=== PATIENT | male | born 1955 | race Caucasian/White ===

== ENCOUNTER 2018-05-04 14:10 | Observation (INO) | payer BC, OTHER ==
--- OUTSIDE RECORDS SUMMARY | 2018-05-04 14:11 | XMS REPORT | Clinical Summary ---
:1955 Author Organization [facility] Address [address] [place] [address] Care Team Providers Name Role Phone Rei Murrell MD Primary Care Provider Unavailable Allergies No Known Allergies Medications Medication Sig Dispensed Refills Start Date End Date Status lisinopril Take 10 mg by 0 Active (PRINIVIL,ZESTRIL) 10 mg mouth daily. tablet chlorthalidone (HYGROTEN) Take 25 mg by 0 Active 25 MG tablet mouth daily. 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 Last Filed Vital Signs Not on file Plan of Treatment Health Maintenance Due Date Last Done Comments COLON CANCER SCREENING 2004 SHINGLES VACCINES (#1) 2004 INFLUENZA VACCINE 09/22/2017 Procedures Procedure Name Priority Date/Time Associated Diagnosis Comments SURGICAL PATHOLOGY Routine 11/16/2017 9:30 AM Results for this REQUEST CDT procedure are in the results section. SURGICAL PATHOLOGY Routine 11/10/2017 9:45 AM Results for this REQUEST CDT procedure are in the results section. after 05/03/2017 Results Surgical pathology request (11/16/2017 9:30 AM CDT)Only the most recent of2 resultswithin the time period is included. [facility] DEPARTMENT OF PATHOLOGY AND GENOMIC MEDICINE Surgical pathology report See link below for PDF [facility] DEPARTMENT OF Lab Report PATHOLOGY AND GENOMIC MEDICINE Result status This is Final Report [facility] DEPARTMENT OF for [id number] PATHOLOGY AND GENOMIC MEDICINE Performing Organization Address City/State/Zipcode Phone Number [facility] DEPARTMENT OF PATHOLOGY AND [address] [place] [address] GENOMIC MEDICINE after 05/03/2017 Insurance Payer Benefit Plan / Group Subscriber ID Type Phone Address BCBS BCBS CHOICE PPO/FEDERAL EMPL PPO xxxxxxxxxxxx PPO [id number] xxxxxxxxxxx Advance Directives Patient has advance care planning documents on file. For more information, please contact:Thiago Mendoza65[place] [address]
--- OUTSIDE RECORDS SUMMARY | 2018-05-04 14:12 | XMS REPORT ---
:1955 Author Organization [facility] Address [address] [place] [address] [address] [place] [address] Care Team Providers Name Role Phone KAUSHIK PENNINGTON Primary Care Provider Unavailable KAUSHIK PENNINGTON Unavailable Unavailable Problems This patient has no known problems. Allergies, Adverse Reactions, Alerts This patient has no known allergies or adverse reactions. Medications This patient has no known medications. Encounters Start End Encounter Admission Attending Care Care Encounter Date/Time Date/Time Type Type Clinicians Facility Department ID 2017-06-14 2017-06-14 Outpatient Fredy PENNINGTON [facility] [id number] 19:47:00 19:47:00 KAUSHIK Results Test Description Test Time Test Comments Text Results Atomic Results Result Comments CBC with Differential 2017-06-14 21:39:00 Test Item Value Reference Range Comments WBC (test code=WBC) 4.8 K/cumm 4.4-10.5 RBC (test code=RBC) 4.97 M/cumm 4.10-5.70 Hemoglobin (test code=HGB) 15.5 gm/dL 13.4-17.4 Hematocrit (test code=HCT) 46.8 % 38.7-52.0 MCV (test code=MCV) 94.2 fL 80-100 MCH (test code=MCH) 31.2 pg 27.0-32.5 MCHC (test code=MCHC) 33.1 g/dL 32.0-37.5 RDW (test code=RDW) 12.8 % 11.5-14.5 Platelet Count (test code=PLTCT) 140 K/cumm 140-440 MPV (test code=MPV) 8.2 fL Diff Method (test code=DIFFM) Auto Neutrophil (test code=NEUT) 73.3 % 36-70 Lymphocyte (test code=LYMPH) 15.5 % 12-44 Monocyte (test code=MONO) 9.6 % 0-11 Eosinophil (test code=EOS) 1.3 % 0-7 Basophil (test code=BASO) 0.4 % 0-2 Neutro Abs (test code=ANEUT) 3.5 K/cumm 1.6-7.4 Lymph Abs (test code=ALYMPH) 0.7 K/cumm 0.5-4.6 [place] Abs (test code=AMONO) 0.5 K/cumm 0.0-1.2 Eos Abs (test code=AEOS) 0.06 K/cumm 0.00-0.74 Baso Abs (test code=ABASO) 0.0 K/cumm 0.00-0.21 Comprehensive Metabolic [id number] 21:14:00 Test Item Value Reference Range Comments Sodium (test code=NA) 143 mmol/L 135-145 Potassium (test code=K) 4.3 mmol/L 3.5-5.1 Chloride (test code=CL) 103 mmol/L 98-105 Carbon Dioxide (test 27 mmol/L 22-29 code=CO2) Glucose (test code=GLU) 91 mg/dL 70-115 Blood Urea Nitrogen 10 mg/dL 8-23 (test code=BUN) Creatinine (test 0.9 mg/dL 0.7-1.2 code=CREAT) Calcium (test code=CA) 8.7 mg/dL 8.3-10.5 Prot Total (test 6.6 g/dL 6.4-8.3 code=TP) Albumin (test code=ALB) 4.5 g/dL 3.5-5.2 A/G Ratio (test 2.1 Ratio code=AGRATIO) Globulin (test 2.1 2.9-3.1 code=GLOB) Bili Total (test 0.9 mg/dL 0.1-0.9 code=TBIL) Alk Phos (test 82 U/L 40-129 code=APHOS) AST (test code=AST) 25 U/L 1-40 ALT (test code=ALT) 23 U/L 1-41 BUN/Creatinine Ratio 11.1 (test code=BCRATIO) Anion Gap (test 13 mmol/L 7-16 code=AGAP) Estimated GFR (test >60 mL/min/1.73m2 eGFR (estimated Glomerular code=GFR) Filtration Rate) is an estimated value,calculated from the patient's serum creatinine using the MDRD equation.It is NOT the patient's actual GFR. The eGFR provides a more clinicallyuseful measure of kidney disease than serum creatinine alone.This calculation takes sex and race into account, if the informationis provided. If the race is not provided, and the patient isAfrican-Vietnamese, multiply by 1.212. If sex is not provided, and thepatient is female, multiply by 0.742. Results for patients <18 years ofage have not been validated by the MDRD study and should be interpretedwith caution.eGFR Result Interpretation:eGFR > or=60 is in the Normal RangeeGFR < 60 may mean kidney diseaseeGFR < 15 may mean kidney failureRanges recommended by the National Kidney Foundation,http://nkdep.nih .gov Lipid [id number] 21:14:00 Test Item Value Reference Range Comments Cholesterol (test 138 mg/dL 0-200 code=CHOL) Triglycerides (test 47 mg/dL 9-200 code=TRIG) HDL (test code=HDL) 61 mg/dL 40-60 Chol/HDL (test 2.3 Ratio 0.0-5.0 code=CHOLPHDL) LDL, Calculated (test 68 mg/dL 0-130 (NOTE)RISK OF HEART code=LDLC) DISEASEPublished by Vietnamese Heart AssociationAnalyte Optimal Boderline Increased RiskCHOL <200 200-239 >240TRIG <150 150-199 >200HDL Male: >60 <40HDL Female: >60 <50LDL <100 130-159 >160LDL NEAR OPTIMAL IS 100-129 VLDL (test code=VLDL) 9 mg/dL 5-40 LDL/HDL (test code=LDLPHDL) 1
[2018-05-04 14:39] LABS: Absolute Lymphocytes (CBC) 1.4 K/uL (0.7-4.9); Absolute Monocytes 0.6 K/uL (0.1-1.3); Absolute Neutrophil 5.1 K/uL (1.8-8.0); Basophils % 0.4 % (0-1.3); Eosinophils % 1.5 % (0-4.4); Lymphocytes % 19.4 % (15.3-44.8); MPV 8.8 fL (7.6-11.3); Monocytes % 7.7 % (3.3-12.3); RBC Red Blood Cell Count 5.32 M/uL (4.33-5.43)
[2018-05-04 15:01] LABS: ALT/SGPT 34 U/L (12-78); AST/SGOT 16 U/L (15-37); Albumin 4.1 g/dL (3.4-5.0); Alkaline Phosphatase 94 U/L (45-117); BUN Blood Urea Nitrogen 11 mg/dL (7-18); Bicarbonate 27 mmol/L (21-32); Bilirubin Direct 0.3 mg/dL (0-0.2); Glucose Level 88 mg/dL (74-106); Magnesium 1.9 mg/dL (1.8-2.4); NT PRO-BNP 87 pg/mL (<125); Potassium 3.9 mmol/L (3.5-5.1); Protein, Total 7.4 g/dL (6.4-8.2); Sodium Level 141 mmol/L (136-145); Troponin (Emerg Dept Use Only) < 0.02 ng/mL (0.0-0.045)
[2018-05-04 15:05] LABS: Protime INR 1.03
--- NOTE | 2018-05-04 15:25 | RAD REPORT ---
EXAM DESCRIPTION: RAD - Chest Single View - 05/04/2018 3:10 pm CLINICAL HISTORY: Intermittent chest pain COMPARISON: December 2011 TECHNIQUE: AP portable chest image was obtained 1505 hours . FINDINGS: Lung volumes are low compared to the prior study. Interstitial pattern is not significantl y different when adjusting for the shallow inspiration. No peripheral mass, consolidation or failure finding. Heart and vasculature are normal. No measurable pleural effusion and no pneumothorax. No acu te bony abnormality seen. No acute aortic findings suspected. IMPRESSION: No acute cardiopulmonary process. No significant change from comparison.
--- NOTE | 2018-05-04 16:07 | RAD REPORT ---
EXAM DESCRIPTION: CT - Chest For Pe Angio - 05/04/2018 3:59 pm CLINICAL HISTORY: Chest pain, shortness of breath COMPARISON: Portable chest May 04, CT chest June 2009 TECHNIQUE: Dynamically enhanced 3 mm thick images of the chest were obtained during administration o f approximately 150mL Isovue 370 IV contrast. Coronal and oblique MIP reconstruction images were gene rated and reviewed. Exam utilizes a protocol to evaluate the pulmonary arterial tree. All CT scans are performed using dose optimization technique as appropriate and may include automated exposure control or mA/KV adjustment according to patient size. FINDINGS: No pulmonary emboli are identified. The aorta as imaged shows no acute or suspicious finding. No pericardial thickening or effusion. No focal mass or consolidation. Interstitial markings are accentuated due to respiratory motion. Mini mal posterior gutter atelectasis noted on the right. A mild interstitial edema or infiltrate could be masked. No pleural effusion or pleural thickening. No mediastinal or hilar suspicious masses. No chest wall masses or abnormal axillary lymphadenopathy. IMPRESSION: No pulmonary emboli identified. No focal mass or consolidation. Minimal interstitial edema or infiltrate in the right lung field is n ot excluded.
[2018-05-04] MEDS ORDERED: ACETAMINOPHEN 500 MG TAB PO PRN (19:50)
[2018-05-04] MEDS ORDERED: ALPRAZOLAM 0.25 MG TABLET PO PRN (19:50)
[2018-05-04] MEDS ORDERED: MORPHINE 4 MG/ML SYR IV PRN (19:50)
--- NOTE | 2018-05-04 19:58 | ER ---
Nurse's Notes [facility] Name: Nicolas Rojas Age: 62 yrs Sex: Male : 1955 Arrival Date: 05/04/2018 Time: 14:15 Bed 6 Private MD: Diagnosis: Chest pain, unspecified Presentation: 05/04 14:16 Presenting complaint: Patient states: He went to the CT today to try to get a referral aj1 because he has been having intermittent chest pain since February. Reports that the pain was on the left side of his chest, but has currently resolved. Patient was given aspirin at the CT prior to EMS arrival. Transition of care: patient was not received from another setting of care. Onset of symptoms was February 2018. Risk Assessment: Do you want to hurt yourself or someone else? Patient reports no desire to harm self or others. Initial Sepsis Screen: Does the patient meet any 2 criteria? No. Patient's initial sepsis screen is negative. Does the patient have a suspected source of infection? No. Patient's initial sepsis screen is negative. Care prior to arrival: None. 14:16 Method Of Arrival: EMS: [facility] aj1 14:16 Acuity: BEBE 3 aj1 Triage Assessment: 14:23 General: Appears in no apparent distress. comfortable, Behavior is calm, cooperative, aj1 appropriate for age. Pain: Denies pain. Cardiovascular: Patient's skin is warm and dry. Historical: - Allergies: 14:23 No Known Allergies; aj1 - Home Meds: 14:23 albuterol sulfate 90 mcg/actuation Inhl HFAA 2 puffs as needed [Active]; aj1 budesonide-formoterol inhalation inhalation 2 puffs 2 times per day [Active]; aspirin 81 mg Oral chew 1 tab once daily [Active]; atorvastatin 80 mg oral tab 1 tab once daily [Active]; esomeprazole magnesium 40 mg oral cpDR 1 cap once daily [Active]; fluticasone 50 mcg/actuation nasal spsn 1 spray 2 times per day [Active]; Wittman 5-325 mg Oral tab 1 tab every 6 hours as needed [Active]; isosorbide mononitrate 30 mg Oral Tb24 1 tab once daily [Active]; nitroglycerin 0.4 mg SL subl 1 tab every 5 minutes [Active]; metoprolol tartrate 12.5 mg Oral once daily [Active]; - PMHx: 14:23 CAD; COPD; Hyperlipidemia; Hypertension; carcinoma; Hypothyroidism; familial aj1 hypoalphalipoproteinemia; - PSHx: 14:23 Hernia repair; surgery for ureter obstruction; aj1 - Immunization history:: Flu vaccine is not up to date. - Social history:: Smoking status: Patient/guardian denies using tobacco. - Ebola Screening: : Patient denies travel to an Ebola-affected area in the 21 days before illness onset. Screenin:25 Abuse screen: Denies threats or abuse. Denies injuries from another. Nutritional aj1 screening: No deficits noted. Tuberculosis screening: No symptoms or risk factors identified. 20:40 Fall Risk None identified. lp1 Assessment: 14:25 General: Appears in no apparent distress. comfortable, Behavior is calm, cooperative, aj1 appropriate for age. Pain: Complains of pain in anterior aspect of left upper chest Pain does not radiate. Pain currently is 0 out of 10 on a pain scale. at worst was 3 out of 10 on a pain scale. Quality of pain is described as aching, Pain began 3 months ago Is intermittent. Neuro: Level of Consciousness is awake, alert, obeys commands, Oriented to person, place, time, situation. Cardiovascular: Heart tones S1 S2 present Patient's skin is warm and dry. Rhythm is sinus rhythm with unifocal PVCs. Respiratory: Airway is patent Respiratory effort is even, unlabored, Respiratory pattern is regular, symmetrical. GI: No signs and/or symptoms were reported involving the gastrointestinal system. : No signs and/or symptoms were reported regarding the genitourinary system. EENT: No signs and/or symptoms were reported regarding the EENT system. Derm: No signs and/or symptoms reported regarding the dermatologic system. Skin is pink, warm \T\ dry. normal. Musculoskeletal: No signs and/or symptoms reported regarding the musculoskeletal system. Circulation, motion, and sensation intact. 15:26 Reassessment: Patient appears in no apparent distress at this time. No changes from aj1 previously documented assessment. Patient and/or family updated on plan of care and expected duration. Pain level reassessed. Patient is alert, oriented x 3, equal unlabored respirations, skin warm/dry/pink. 16:27 Reassessment: Patient appears in no apparent distress at this time. No changes from aj1 previously documented assessment. Patient and/or family updated on plan of care and expected duration. Pain level reassessed. Patient is alert, oriented x 3, equal unlabored respirations, skin warm/dry/pink. 17:41 Reassessment: Patient appears in no apparent distress at this time. No changes from aj1 previously documented assessment. Patient and/or family updated on plan of care and expected duration. Pain level reassessed. Patient is alert, oriented x 3, equal unlabored respirations, skin warm/dry/pink. 18:11 Reassessment: Patient appears in no apparent distress at this time. No changes from aj1 previously documented assessment. Patient and/or family updated on plan of care and expected duration. Pain level reassessed. Patient is alert, oriented x 3, equal unlabored respirations, skin warm/dry/pink. 18:30 Reassessment: Repeat EKG done and shown to PA. Repeat troponin obtained and sent to lab.aj1 19:45 Reassessment: Patient appears in no apparent distress at this time. Patient is alert, lp1 oriented x 3, equal unlabored respirations, skin warm/dry/pink. Patient states some chest pressure at this time; Aware of pending admission. 20:20 Reassessment:. Reassessment: Dr. Hanley at bedside to discuss care with patient. lp1 21:08 Reassessment: Patient appears in no apparent distress at this time. Patient is alert, lp1 oriented x 3, equal unlabored respirations, skin warm/dry/pink. Patient aware of pending admission. Vital Signs: 14:23 BP 170 / 96; Pulse 83; Resp 13; Temp 97.6; Pulse Ox 97% on R/A; Weight 108.86 kg (R); aj1 Height 6 ft. 2 in. (187.96 cm) (R); Pain 0/10; 15:27 BP 148 / 118; Pulse 79; Resp 22; Pulse Ox 97% on R/A; aj1 16:14 BP 172 / 85; Pulse 75; Resp 12; Pulse Ox 98% ; sv 17:42 BP 166 / 102; Pulse 79; Resp 20; Pulse Ox 97% on R/A; aj1 18:12 BP 163 / 88; Pulse 82; Resp 15; Pulse Ox 100% on R/A; aj1 19:00 BP 170 / 109; Pulse 71; Resp 20; Pulse Ox 98% on R/A; lp1 20:00 BP 177 / 114; Pulse 74; Resp 17; Pulse Ox 98% on R/A; lp1 20:20 BP 157 / 91; Pulse 77; Resp 18; Pulse Ox 96% on R/A; lp1 20:40 BP 159 / 84; Pulse 79; Resp 20; Pulse Ox 97% on R/A; lp1 21:51 BP 130 / 76; Pulse 78; Resp 20; Pulse Ox 97% on R/A; lp1 14:23 Body Mass Index 30.81 (108.86 kg, 187.96 cm) aj1 ED Course: 14:15 Patient arrived in ED. [facility] 14:18 Iván Berman PA is PHCP. [facility] 14:18 Adonay Davis MD is Attending Physician. [facility] 14:18 Triage completed. [facility] 14:21 Initial lab(s) drawn, by me. Inserted saline lock: 22 gauge in right antecubital area, jb1 using aseptic technique. Blood collected. 14:23 Arm band placed on. aj1 14:25 No provider procedures requiring assistance completed. Patient maintains SpO2 aj saturation greater than 95% on room air. 14:25 Patient has correct armband on for positive identification. Bed in low position. Call 1 light in reach. Side rails up X 1. wrestling coach on. Pulse ox on. NIBP on. 14:35 EKG done, by control valve technician. reviewed by Iván PINEDO. 3 14:37 Bekah Baker, RN is Primary Nurse. aj1 15:09 XRAY Chest (1 view) In Process Unspecified. EDMS 15:[address] via stretcher. nj 15:59 CT completed. Patient tolerated procedure well. Patient moved back from CT. nj 15:59 CT Chest For PE Angio In Process Unspecified. EDMS 19:57 Carmine Hanley MD is Hospitalizing Provider. jm 20:44 Patient admitted, IV remains in place. lp1 Administered Medications: 20:17 Drug: Aspirin Chewable Tablet 324 mg Route: PO; lp1 21:08 Follow up: Response: No adverse reaction lp1 Outcome: 19:57 Decision to Hospitalize by Provider. jm 21:04 Condition: stable lp1 21:04 Instructed on the need for admit. 21:38 Admitted to Tele accompanied by tech, via wheelchair, room 416, with chart, Report lp1 called to SARAH Erwin 22:01 Patient left the ED. lp1 Signatures: Dispatcher [employer] EDVirgil Bran jb1 Bekah Baker, RN RN aj1 Jeanie Richards RN RN Iván Soto PA PA jmm Pena, Laura, RN RN lp1 Heladio Jacinto Shakira 3 Corrections: (The following items were deleted from the chart) 20:41 19:15 BP 111 / 65; Pulse 74bpm; Resp 19bpm; Pulse Ox 98% RA; Pain 0/10; lp1 lp1 20:41 20:15 BP 105 / 60; Pulse 73bpm; Resp 19bpm; Pulse Ox 99% RA; Pain 0/10; lp1 lp1 20:44 20:40 IV discontinued, No redness/swelling at site. Pressure dressing applied, lp1 lp1 21:08 20:27 Reassessment: Dr. Hanley at bedside to discuss care with patient; Verbal order lp1 given to administer Lopressor 5mg IV now for elevated BP lp1
--- NOTE | 2018-05-04 19:58 | EDPHYS ---
Physician Documentation [facility] Name: Nicolas Rojas Age: 62 yrs Sex: Male : 1955 Arrival Date: 05/04/2018 Time: 14:15 Bed 6 Private MD: ED Physician Adonay Davis HPI: 05/04 14:25 This 62 yrs old Male presents to ER via EMS with complaints of Chest Pain. [facility] 14:25 The patient or guardian reports chest pain that is located primarily in the substernal [facility] area. Onset: gradually, at 11:00. The pain does not radiate. The chest pain is described as aching. This is a 62 year old male with a history of CAD, COPD, HLP, HTN that presents to the ED with complaints of intermittent chest pain since February with increased pain beginning this morning at approx 11 am. Patient denies radiation of pain. Denies abdominal pain, denies vomiting. . Historical: - Allergies: 14:23 No Known Allergies; aj1 - Home Meds: 14:23 albuterol sulfate 90 mcg/actuation Inhl HFAA 2 puffs as needed [Active]; aj1 budesonide-formoterol inhalation inhalation 2 puffs 2 times per day [Active]; aspirin 81 mg Oral chew 1 tab once daily [Active]; atorvastatin 80 mg oral tab 1 tab once daily [Active]; esomeprazole magnesium 40 mg oral cpDR 1 cap once daily [Active]; fluticasone 50 mcg/actuation nasal spsn 1 spray 2 times per day [Active]; [place] 5-325 mg Oral tab 1 tab every 6 hours as needed [Active]; isosorbide mononitrate 30 mg Oral Tb24 1 tab once daily [Active]; nitroglycerin 0.4 mg SL subl 1 tab every 5 minutes [Active]; metoprolol tartrate 12.5 mg Oral once daily [Active]; - PMHx: 14:23 CAD; COPD; Hyperlipidemia; Hypertension; carcinoma; Hypothyroidism; familial aj1 hypoalphalipoproteinemia; - PSHx: 14:23 Hernia repair; surgery for ureter obstruction; aj1 - Immunization history:: Flu vaccine is not up to date. - Social history:: Smoking status: Patient/guardian denies using tobacco. - Ebola Screening: : Patient denies travel to an Ebola-affected area in the 21 days before illness onset. ROS: 14:25 Constitutional: Negative for fever, chills, and weight loss. [facility] 14:25 Respiratory: Negative for shortness of breath, cough, wheezing, and pleuritic chest pain, Abdomen/GI: Negative for abdominal pain, nausea, vomiting, diarrhea, and constipation. 14:25 Cardiovascular: Positive for chest pain. 14:25 All other systems are negative. Exam: 14:25 Head/Face: atraumatic. Eyes: EOMI, no conjunctival erythema appreciated ENT: Moist [facility] Mucus Membranes Neck: Trachea midline, Supple Chest/axilla: Normal chest wall appearance and motion. Cardiovascular: Regular rate and rhythm. No edema appreciated Respiratory: Normal respirations, no respiratory distress appreciated Abdomen/GI: Non distended, soft Back: Normal ROM Skin: General appearance color normal MS/ Extremity: Moves all extremities, no obvious deformities appreciated, no edema noted to the lower extremities Neuro: Awake and alert, normal gait Psych: Behavior is normal, Mood is normal, Patient is cooperative and pleasant 14:25 Constitutional: The patient appears in no acute distress, alert, awake. 14:31 Cardiovascular: Rate: normal, Rhythm: Pulses: no pulse deficits are appreciated. [facility] Vital Signs: 14:23 BP 170 / 96; Pulse 83; Resp 13; Temp 97.6; Pulse Ox 97% on R/A; Weight 108.86 kg (R); aj1 Height 6 ft. 2 in. (187.96 cm) (R); Pain 0/10; 15:27 BP 148 / 118; Pulse 79; Resp 22; Pulse Ox 97% on R/A; aj1 16:14 BP 172 / 85; Pulse 75; Resp 12; Pulse Ox 98% ; sv 17:42 BP 166 / 102; Pulse 79; Resp 20; Pulse Ox 97% on R/A; aj1 18:12 BP 163 / 88; Pulse 82; Resp 15; Pulse Ox 100% on R/A; aj1 19:00 BP 170 / 109; Pulse 71; Resp 20; Pulse Ox 98% on R/A; lp1 20:00 BP 177 / 114; Pulse 74; Resp 17; Pulse Ox 98% on R/A; lp1 20:20 BP 157 / 91; Pulse 77; Resp 18; Pulse Ox 96% on R/A; lp1 20:40 BP 159 / 84; Pulse 79; Resp 20; Pulse Ox 97% on R/A; lp1 21:51 BP 130 / 76; Pulse 78; Resp 20; Pulse Ox 97% on R/A; lp1 14:23 Body Mass Index 30.81 (108.86 kg, 187.96 cm) aj1 MDM: 14:25 Patient medically screened. [facility] 19:56 The patient was given aspirin in the Emergency Department. Data reviewed: vital signs, [facility] nurses notes, lab test result(s), EKG, radiologic studies, plain films. ED course: I discussed the patient with Dr. Hanley whom accepted admission. . 05/04 14:26 Order name: Basic Metabolic Panel; Complete Time: 15:02 [facility] 05/04 14:26 Order name: CBC with Diff; Complete Time: 14:54 [facility] 05/04 14:26 Order name: LFT's; Complete Time: 15:02 [facility] 05/04 14:26 Order name: Magnesium; Complete Time: 15:02 [facility] 05/04 14:26 Order name: NT PRO-BNP; Complete Time: 15:02 [facility] 05/04 14:26 Order name: PT-INR; Complete Time: 15:09 [facility] 05/04 14:26 Order name: Troponin (emerg Dept Use Only); Complete Time: 15:02 [facility] 05/04 14:26 Order name: XRAY Chest (1 view); Complete Time: 15:27 [facility] 05/04 15:18 Order name: Troponin (emerg Dept Use Only): 4 hour repeat. Draw at 1830; Complete Time: [facility] 18:57 05/04 19:54 Order name: Lipid Profile [facility] 05/04 19:54 Order name: Lipid Profile [facility] 05/04 19:54 Order name: Troponin I [facility] 05/04 19:54 Order name: Troponin I [facility] 05/04 19:54 Order name: Troponin I [facility] 05/04 14:26 Order name: EKG; Complete Time: 14:27 [facility] 05/04 14:26 Order name: Cardiac monitoring; Complete Time: 14:27 [facility] 05/04 14:26 Order name: EKG - Nurse/Tech; Complete Time: 14:27 [facility] 05/04 14:26 Order name: IV Saline Lock; Complete Time: 14:27 [facility] 05/04 14:26 Order name: Labs collected and sent; Complete Time: 14:27 [facility] 05/04 14:26 Order name: O2 Per Protocol; Complete Time: 14:27 [facility] 05/04 14:26 Order name: O2 Sat Monitoring; Complete Time: 14:27 [facility] 05/04 15:18 Order name: EKG - Nurse/Tech: run at 1830; Complete Time: 18:42 [facility] 05/04 15:41 Order name: CT Chest For PE Angio; Complete Time: 16:17 [facility] 05/04 19:54 Order name: CONS Physician Consult [facility] 05/04 19:54 Order name: Heart Healthy [facility] 05/04 19:54 Order name: Echo with Doppler [facility] 05/04 19:54 Order name: EKG Electrocardiogram [facility] 05/04 19:54 Order name: EKG Electrocardiogram [facility] Administered Medications: 20:17 Drug: Aspirin Chewable Tablet 324 mg Route: PO; lp1 21:08 Follow up: Response: No adverse reaction lp1 Disposition: 05/05 08:01 Co-signature as Attending Physician, Adonay Davis MD I agree with the assessment and dannie plan of care. Disposition: 05/04/18 19:57 Hospitalization ordered by Carmine Hanley for Observation. Preliminary diagnosis is Chest pain, unspecified. - Bed requested for Telemetry/MedSurg (observation). - Status is Observation. lp1 - Condition is Stable. - Problem is new. - Symptoms have improved. UTI on Admission? No Signatures: Dispatcher [employer] [facility] Bekah Baker RN RN aj1 Adonay Davis MD MD cha Mickail, Joel, PA PA [facility] Ira Anton RN RN lp1 Mica De La Garza RN RN cg Corrections: (The following items were deleted from the chart) 05/04 20:08 19:57 Hospitalization Ordered by Carmine Hanley MD for Observation. Preliminary cg diagnosis is Chest pain, unspecified. Bed requested for Telemetry/MedSurg (observation). Status is Observation. Condition is Stable. Problem is new. Symptoms have improved. UTI on Admission? No. [facility] 22:01 20:08 05/04/2018 19:57 Hospitalization Ordered by Carmine Hanley MD for Observation. lp1 Preliminary diagnosis is Chest pain, unspecified. Bed requested for Telemetry/MedSurg (observation). Status is Observation. Condition is Stable. Problem is new. Symptoms have improved. UTI on Admission? No. cg
[2018-05-04] MEDS ORDERED: ASPIRIN 81 MG CHEWABLE TABLET ONE (20:23)
[2018-05-04] MEDS ORDERED: METOPROLOL TAR 50 MG TAB PO SCH (21:00)
[2018-05-04] MEDS ORDERED: METOPROLOL TARTRATE 5 MG/5 ML INJ IV SCH (22:31)
[2018-05-05] MEDS: FUROSEMIDE 40 MG/4 ML VIAL IV SCH ×2 (00:14→09:51)
[2018-05-05 00:46] LABS: Urine Appearance CLEAR; Urine Bilirubin NEGATIVE (NEG); Urine Blood NEGATIVE (NEG); Urine Color YELLOW; Urine Glucose NEGATIVE (NEG); Urine Microscopic Reflex NO UMIC; Urine Protein NEGATIVE (NEG); Urine Specific Gravity 1.025 (1.005-1.030); Urine pH 7.5 (5.0-7.0)
[2018-05-05 02:01] VITALS: BMI 32.1
[2018-05-05] MEDS ORDERED: REGADENOSON 0.4 MG/5 ML SYR IV ONE (08:23)
[2018-05-05] MEDS ORDERED: ENOXAPARIN 40 MG/0.4 ML SQ SCH (09:00)
[2018-05-05] MEDS ORDERED: ASPIRIN EC 81 MG TAB PO SCH (09:00)
[2018-05-05] MEDS: METOPROLOL TAR 50 MG TAB PO SCH ×2 (09:50)
--- NOTE | 2018-05-05 10:31 | CON ---
History Of Present Illness: Mr. Rojas has been getting chest pain mostly in the morning, makes him t o lay on his side, press on it to help it go away. He is a patient at the [facility] When they he norma this, they sent him to our hospital. Since being here overnight, he has had normal vital signs. His EKG report is not available. He has had a CT angio of the chest, and chest x-ray that are michaela l, and cardiac enzymes that are normal. He has never had myocardial infarction or stroke. Does not use tobacco. Does not have diabetes. Medications: Outpatient medications have been naproxen, isosorbide mononitrate, hydrocodone, aspirin , budesonide, albuterol, metoprolol, atorvastatin, Protonix, and nitroglycerin. Physical Examination: General: He is 6 feet 1 inch, 243 pounds. HEENT: Normal. Lungs: Clear. Cardiac: Normal. Extremities: Normal. Impression: I will recommend the patient get a pharmacologic nuclear stress test. If that is normal , he could be discharged. I suspect he has a musculoskeletal or gastrointestinal problem causing the pain he has. Thank you very much for your kind referral of Mr. Rojas. I will follow him with you. ASHWIN Voice ID: [id number] Report ID: [id number]
--- NOTE | 2018-05-05 10:34 | EKG ---
Test Date: 2018-05-04 Test Time: 14:29:42 Automatic Lump Making Machine Tender: DELISA MEASUREMENT RESULTS: Intervals: Rate: 78 MI: 208 QRSD: 112 QT: 426 QTc: 485 [place]: P: 61 MI: 208 QRS: -22 T: 41 INTERPRETIVE STATEMENTS: Sinus rhythm with frequent premature ventricular complexes Left atrial enlargement Prolonged QT Abnormal ECG Compared to ECG 08/24/2004 21:19:00 Ventricular premature complex(es) now present Prolonged QT interval now present Left-axis deviation no longer present Electronically Signed On 05-04-18 17:47:27 CDT by Juan England
--- NOTE | 2018-05-05 10:38 | EKG ---
Test Date: 2018-05-04 Test Time: 18:23:14 Net Mobile Developer: TODD MEASUREMENT RESULTS: Intervals: Rate: 78 HI: 190 QRSD: 108 QT: 430 QTc: 490 [place]: P: 10 HI: 190 QRS: -13 T: -8 INTERPRETIVE STATEMENTS: Sinus rhythm with frequent premature ventricular complexes Prolonged QT Abnormal ECG Compared to ECG 05/04/2018 14:29:42 Atrial abnormality no longer present Electronically Signed On 05-05-18 08:14:13 CDT by Juan England
--- NOTE | 2018-05-05 10:46 | P.HP ---
Certification for Inpatient Patient admitted to: Observation With expected LOS: <2 Midnights Patient will require the following post-hospital care: None Practitioner: I am a practitioner with admitting privileges, knowledge of patient current condition, hospital course, and medical plan of care. Services: Services provided to patient in accordance with Admission requirements found in Title 42 Section 412.3 of the Code of Federal Regulations Patient History Date of Service: 05/04/18 Reason for admission: Chest pain rule out acute coronary syndrome History of Present Illness: Patient is a 62-year-old gentleman who came to the hospital with chest discomfort. Pain was mainly in the sternal region. Patient recently had a cardiac catheterization which did not reveal any significant coronary artery disease. Patient had no intervention performed. Patient was treated medically. Patient has been doing well but then over the last few weeks he has noticed that he is more short of breath and having discomfort of his chest as well. 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 He feels this may be contributing to the chest pain. The shortness of breath is exacerbated by laying flat. He has orthopnea and PND. His blood pressure is significantly elevated. Normally it runs about 140/80 but it is running 190s over 110 at this time. He will be admitted to the hospital for further workup. Allergies No Known Allergies Allergy (Verified 05/05/18 02:02) Home Medications: Albuterol Sulfate [Proair Respiclick] 2 puff IH Q6HP PRN 05/05/18 Aspirin Chewable [Aspirin Chewable*] 81 mg PO DAILY 05/05/18 Atorvastatin Calcium [Lipitor] 80 mg PO DAILY 05/05/18 Budesonide/Formoterol Fumarate [Symbicort 80-4.5 Mcg Inhaler] 2 puff IH BID Hydrocodone 5/APAP 325 [[employer] 5/325] 1 tab PO Q6H PRN 05/05/18 Isosorbide Mononitrate [Isosorbide Mononitrate ER] 30 mg PO DAILY 05/05/18 Metoprolol Tartrate [Lopressor] 25 mg PO BID 05/05/18 Naproxen 375 mg PO Q6HP PRN 05/05/18 Nitroglycerin 0.4 mg SL Q5M 05/05/18 Pantoprazole [Protonix Tab] 40 mg PO DAILY 05/05/18 - Past Medical/Surgical History Has patient received pneumonia vaccine in the past: No Diabetic: No -: CAD -: COPD -: HYPERLIPIDEMIA -: GERD -: BENIGN ESSENTIAL HYPERTENSION -: CHRONIC KRIS PAIN -: 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 -: PERIPHERAL NERVE DISEASE -: HYPOTHYROIDISM -: FAMILIAL HYPOALPHALIPOPROTEINEMIA -: Cardiac catheterization -: Skin excisional biopsy - Family History Father Medical History: Cancer Mother Medical History: Cancer - Social History Smoking Status: Former smoker Alcohol use: Yes CD- Drugs: No Caffeine use: Yes Place of Residence: Home Review of Systems 10-point ROS is otherwise unremarkable Physical Examination - Vital Signs Temperature: 97.7 F Blood Pressure: 140/90 Pulse: 61 Respirations: 20 Pulse Ox (%): 95 - Physical Exam General: Alert, In no apparent distress, Oriented x3 HEENT: Atraumatic, PERRLA, Mucous membr. moist/pink, EOMI, Sclerae nonicteric Neck: Supple, 2+ carotid pulse no bruit, No LAD, Without JVD or thyroid abnormality Respiratory: Clear to auscultation bilaterally, Normal air movement Cardiovascular: Regular rate/rhythm, Normal S1 S2, No murmurs Gastrointestinal: Normal bowel sounds, Soft and benign, Non-distended, No tenderness, No rebound, No guarding Musculoskeletal: No clubbing, No swelling, No tenderness Integumentary: No rashes Neurological: Normal gait, Normal speech, Normal strength at 5/5 x4 extr, Normal tone, Sensation intact, Cranial nerves 3-12 intact, Normal affect Lymphatics: No axilla or inguinal lymphadenopathy - Studies Laboratory Data (last 24 hrs) 05/04/18 14:20: PT 12.1, INR 1.03 05/04/18 14:20: WBC 7.2, Hgb 16.2, Hct 48.0, Plt Count 183 05/04/18 14:20: Sodium 141, Potassium 3.9, BUN 11, Creatinine 0.91, Glucose 88, Magnesium 1.9, Total Bilirubin 1.0, AST 16, ALT 34, Alkaline Phosphatase 94 Assessment & Plan - Problems (Diagnosis) (1) Acute exacerbation of CHF (congestive heart failure) Current Visit: Yes Status: Acute (2) Chest pain, rule out acute myocardial infarction Current Visit: Yes Status: Acute (3) History of hypertension Current Visit: Yes Status: Acute - Plan 1. Serial troponins and EKG 2. Cardiology consultation 3. Echocardiogram to evaluate ejection fraction and left ventricular relaxation. 4. Anti-platelet therapy, anti coagulation, beta-srikanth, statin, and O2 as needed 5. IV morphine for pain 6. Nitro p.r.n. 7. GI and DVT prophylax - Advance Directives Does patient have a Living Will: No Does patient have a Durable POA for Healthcare: Yes - Code Status/Comfort Care Code Status Assessed: Yes Code Status: Full Code Critical Care: No Time Spent Managing PTS Care (In Minutes): 45
--- NOTE | 2018-05-05 11:12 | TREADPHA ---
DX: CHEST PAIN Date of Study: 05/05/2018 Ht: 6 1 Wt: 243 lb 9.6 oz Consulting Physician: JODEE MEDICATIONS: TYLENOL, ASPIRIN, XANAX, LASIX, LOVENOX HISTORY: 62 YEAR OLD MALE WITH COMPLAINTS OF CHEST PAIN. HISTORY OF CORONARY ARTERY DISEASE, HYPERLIPIDEMIA, HYPERTENSION, CARCINOMA, HYPOTHYROIDISM, HERNIA REPAIR, NON SMOKER, NON DRINKER. PHYSICIAL EXAMINATION: RESTING B.P.: 120/78 RESTING H.R.: 59 RESTING EKG: SINUS BRADYCARDIA WITH PREMATURE VENTRICULAR COMPLEXES. NON SPECIFIC T ABNORMALITY. PROTOCOL: LEXISCAN EXERCISE TIME: 3:30 B.P. AT PEAK STRESS: 123/83 IMPRESSION: LEXISCAN INJECTED, FOLLOWED BY CARDIOLITE PER PROTOCOL. SEE NUCLEAR MEDICINE REPORT. NO SUPRAVENTRICULAR TACHYCARDIA. NO VENTRICULAR TACHYCARDIA. OCCASIONAL PREMATURE ATRIAL COMPLEXES PRIOR, DURING AND IN RECOVERY. NO PREMATURE VENTRICULAR COMPLEXES. PATIENT REPORTED 3/10 CHEST PAIN PRIOR AND DURING PROCEDURE. PATIENT REPORTED CHEST PAIN 1/10 DURING RECOVERY. NON DIAGNOSTIC EKG WITH LEXISCAN STRESS.
--- NOTE | 2018-05-05 12:03 | RAD REPORT ---
EXAM DESCRIPTION: NM - Rest Stress Cardiac Imaging - 05/05/2018 11:50 am CLINICAL HISTORY: Chest pain. COMPARISON: None. TECHNIQUE: The patient was administered approximately 10mCi of Tc 99m Sestamibi prior to resting SPE CT imaging of the heart. The patient was then administered approximately 30 mCi of Tc 99m Sestamibi f ollowing exercise or pharmacologic stress. Multiplanar SPECT images were reviewed. FINDINGS: There is uniformity of radiotracer uptake involving the entire left ventricular myocardiu m The left ventricular ejection fraction equals 52% IMPRESSION: Negative for myocardial perfusion defect
[2018-05-05 12:20] VITALS: O2SAT 94
--- NOTE | 2018-05-05 12:21 | ECHO ---
HEIGHT: 6 ft 1 in WEIGHT: 243 lb 9.6 oz DATE OF STUDY: 05/05/[address]: Carmine Hanley MD 2-DIMENSIONAL: YES M.MODE: YES DOPPLER: YES COLOR FLOW: YES TDS: NO PORTABLE: NO DEFINITY: NO BUBBLE STUDY: NO DIAGNOSIS: CHEST PAIN/ RULT OUT ACUTE CORONARY SYNDROME CARDIAC HISTORY: CATHERIZATION: YES SURGERY: NO PROSTHETIC VALVE: NO PACEMAKER: NO MEASUREMENTS (cm) DIASTOLIC (NORMALS) SYSTOLIC (NORMALS) IVSd 1.1 (0.6-1.2) LA Diam (1.9-4.0) LVEF 60-69% LVIDd 4.5 (3.5-5.7) LVIDs 2.9 (2.0-3.5) %FS % LVPWd 1.2 (0.6-1.2) Ao Diam 4.0 (2.0-3.7) 2 DIMENSIONAL ASSESSMENT: RIGHT ATRIUM: NORMAL LEFT ATRIUM: NORMAL RIGHT VENTRICLE: NORMAL LEFT VENTRICLE: NORMAL TRICUSPID VALVE: NORMAL MITRAL VALVE: NORMAL PULMONIC VALVE: NORMAL AORTIC VALVE: NORMAL PERICARDIAL EFFUSION: NONE AORTIC ROOT: NORMAL LEFT VENTRICULAR WALL MOTION: NORMAL. DOPPLER/COLOR FLOW: NORMAL. COMMENTS: NORMAL 2D ECHO WITH DOPPLER. TECHNOLOGIST: RADHA GREENWOOD
[2018-05-05 13:46] VITALS: BP 118/81; TEMP 98.3
--- NOTE | 2018-05-05 15:55 | P.SSS ---
Patient History Date of Service: 05/05/18 Reason for admission: Chest pain rule out acute coronary syndrome History of Present Illness: Patient is a 62-year-old gentleman who came to the hospital with chest discomfort. Pain was mainly in the sternal region. Patient recently had a cardiac catheterization which did not reveal any significant coronary artery disease. Patient had no intervention performed. Patient was treated medically. Patient has been doing well but then over the last few weeks he has noticed that he is more short of breath and having discomfort of his chest as well. 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 He feels this may be contributing to the chest pain. The shortness of breath is exacerbated by laying flat. He has orthopnea and PND. His blood pressure is significantly elevated. Normally it runs about 140/80 but it is running 190s over 110 at this time. He will be admitted to the hospital for further workup. Allergies No Known Allergies Allergy (Verified 05/05/18 02:02) Home Medications: Albuterol Sulfate [Proair Respiclick] 2 puff IH Q6HP PRN 05/05/18 Aspirin Chewable [Aspirin Chewable*] 81 mg PO DAILY 05/05/18 Atorvastatin Calcium [Lipitor] 80 mg PO DAILY 05/05/18 Budesonide/Formoterol Fumarate [Symbicort 80-4.5 Mcg Inhaler] 2 puff IH BID Hydrocodone 5/APAP 325 [[place] 5/325] 1 tab PO Q6H PRN 05/05/18 Isosorbide Mononitrate [Isosorbide Mononitrate ER] 30 mg PO DAILY 05/05/18 Metoprolol Tartrate [Lopressor] 25 mg PO BID 05/05/18 Naproxen 375 mg PO Q6HP PRN 05/05/18 Nitroglycerin 0.4 mg SL Q5M 05/05/18 Pantoprazole [Protonix Tab] 40 mg PO DAILY 05/05/18 - Past Medical/Surgical History Has patient received pneumonia vaccine in the past: No Diabetic: No -: CAD -: COPD -: HYPERLIPIDEMIA -: GERD -: BENIGN ESSENTIAL HYPERTENSION -: CHRONIC KRIS PAIN -: 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 moist/pink, EOMI, Sclerae nonicteric Neck: Supple, 2+ carotid pulse no bruit, No LAD, Without JVD or thyroid abnormality Respiratory: Clear to auscultation bilaterally, Normal air movement Cardiovascular: Regular rate/rhythm, Normal S1 S2 Gastrointestinal: Normal bowel sounds, No tenderness Musculoskeletal: No tenderness Integumentary: No rashes Neurological: Normal gait, Normal speech, Normal strength at 5/5 x4 extr, Normal tone, Normal affect Lymphatics: No axilla or inguinal lymphadenopathy - Diagnosis (Problem(s)) (1) Chest pain, rule out acute myocardial infarction Status: Acute (2) History of hypertension Status: Acute Treatment Summary: Overall during the hospital stay patient main stable Patient was initially admitted to the hospital for chest pain, ACS rule out. Patient's troponin x2 was negative here in the hospital. EKG was also within normal limits. Patient had an echocardiogram done here in the hospital which was within normal limits as well. Patient initially had a stress test for however after reviewing the records patient recently had a cardiac catheterization has been done at [facility]. Cardiac catheterization at that time was within normal limits. This patient was discharged home after ruling out of aCS and was asked to follow up with his cardiology for further care. Patient demonstrated understanding and thus was discharged home under stable condition. - Disposition Disposition: ROUTINE DISCHARGE Condition: GOOD Patient Discharge Instructions: Please f.u with Cardiology Dr Benitez in 1 to 2 days post discharge. No new medication Diet: Regular Activity: Ad polo
== END 2018-05-05 13:51 | disposition home or self-care (01) ==
LOC: ER 14:10 → ERHOLD 19:50 → 4TH 21:42
PROVIDERS: ADMIT Hospitalist; ATTEND Hospitalist
DX: R07.9 Chest pain, unspecified (principal); I10 Essential (primary) hypertension; I25.10 Atherosclerotic heart disease of native coronary artery without angina pectoris; E03.9 Hypothyroidism, unspecified; J44.9 Chronic obstructive pulmonary disease, unspecified; E78.5 Hyperlipidemia, unspecified
CPT/HCPCS: 36415; 71045; 71275; 78452; 80048; 80061; 80076; 81003; 83735; 83880; 84484; 85025; 85610; 93005; 93017; 93306; 94760; 99285; A9500; G0378; J1650; J1940; J2785; Q9967

== ENCOUNTER 2022-01-24 09:31 | Inpatient (IN) | payer OTHER ==
[2022-01-24] MEDS ORDERED: NA CHLORIDE 0.9% 1,000 ML ONE (10:11)
[2022-01-24 10:34] LABS: Hematocrit 39.3 % (39.6-49.0); Lymphocytes % 13.2 % (15.3-44.8); MCV 84.6 fL (80-100); MPV 7.3 fL (7.6-11.3); RBC Red Blood Cell Count 4.64 M/uL (4.33-5.43)
[2022-01-24 10:35] LABS: Protime INR 1.3
--- NOTE | 2022-01-24 10:44 | ER ---
Nurse's Notes [facility] Name: Nicolas Rojas Age: 66 yrs Sex: Male : 1955 Arrival Date: 01/24/2022 Time: 09:33 Bed 4 Private MD: Diagnosis: Dyspnea;Hypotension, unspecified-RESOLVED;Syncope Near;Pneumonia due to other specified bacteria-BILATERAL MULTIFOCAL;Dehydration Presentation: 01/24 09:49 Chief complaint: Patient states: Pt reports he was diagnosed with bilateral pneumonia iw on Wednesday and has been taking Augmentin and azithromycin. Reports this morning he was feeling more SOB and his O2 sat was in the 60's. Pt has PRN O2 at home and applied O2 prior to coming to ER. Coronavirus screen: Vaccine status: Patient reports receiving the 2nd dose of the covid vaccine. Ebola Screen: Patient negative for fever greater than or equal to 101.5 degrees Fahrenheit, and additional compatible Ebola Virus Disease symptoms Patient denies exposure to infectious person. Patient denies travel to an Ebola-affected area in the 21 days before illness onset. Initial Sepsis Screen: Does the patient meet any 2 criteria? No. Patient's initial sepsis screen is negative. Does the patient have a suspected source of infection? No. Patient's initial sepsis screen is negative. Risk Assessment: Do you want to hurt yourself or someone else? Patient reports no desire to harm self or others. Onset of symptoms was January 19, 2022. 09:49 Method Of Arrival: Wheelchair iw 09:49 Acuity: BEBE 2 iw Triage Assessment: 09:52 General: Appears in no apparent distress. Behavior is calm, cooperative. Pain: iw Complains of pain in chest Pain does not radiate. Pain currently is 5 out of 10 on a pain scale. Respiratory: Reports shortness of breath cough that is Airway is patent Respiratory effort is even, unlabored. Historical: - Allergies: 09:52 No Known Allergies; iw - PMHx: 09:52 CAD; carcinoma; COPD; familial hypoalphalipoproteinemia; Hyperlipidemia; Hypertension; iw Hypothyroidism; - PSHx: 09:52 left lower lobectomy; iw - Immunization history:: Adult Immunizations up to date, Client reports receiving the 2nd dose of the Covid vaccine, Last tetanus immunization: up to date. - Social history:: Smoking status: Patient denies any tobacco usage or history of. - Family history:: not pertinent. Screenin:35 Abuse screen: Denies threats or abuse. Nutritional screening: No deficits noted. mb9 Tuberculosis screening: No symptoms or risk factors identified. Fall Risk None identified. Assessment: 10:00 General: Appears in no apparent distress. comfortable, Behavior is calm, cooperative, mb9 appropriate for age. Pain: Complains of pain in chest Pain does not radiate. Pain currently is 3 out of 10 on a pain scale. Quality of pain is described as tightness. Neuro: Alonso Agitation-Sedation Scale (RASS): 0 - Alert and Calm Level of Consciousness is awake, alert, obeys commands, Oriented to person, place, time, situation, Appropriate for age. Cardiovascular: Heart tones S1 S2 present Capillary refill < 3 seconds Rhythm is sinus rhythm with unifocal PVCs. Respiratory: Reports shortness of breath at rest Airway is patent Respiratory effort is even, unlabored, Respiratory pattern is tachypnea. Respiratory: Breath sounds are clear bilaterally. Respiratory: Reports cough that is productive. GI: Abdomen is flat, Bowel sounds present X 4 quads. : No signs and/or symptoms were reported regarding the genitourinary system. EENT: No signs and/or symptoms were reported regarding the EENT system. Derm: Skin is pink, warm \T\ dry. Musculoskeletal: Range of motion: intact in all extremities. 11:30 General: Appears in no apparent distress. comfortable, Behavior is calm, cooperative, mb9 appropriate for age. Pain: Complains of pain in chest. 11:30 Neuro: Level of Consciousness is awake, alert, obeys commands. Cardiovascular: Rhythm mb9 is sinus rhythm with unifocal PVCs. Respiratory: Airway is patent. Respiratory: pt intermittently coughing. Sputum is purulent. Derm: Skin is pink, warm \T\ dry. 11:42 Reassessment: pt taken to CT via bed. mb9 13:10 Pain: Complains of pain in chest. Neuro: Level of Consciousness is awake, alert, obeys mb9 commands, Oriented to person, place, time, situation, Appropriate for age. Cardiovascular: Rhythm is sinus rhythm with unifocal PVCs. Respiratory: Airway is patent Respiratory effort is even, unlabored, Respiratory pattern is tachypnea pt intermittently coughing. Derm: Skin is pink, warm \T\ dry. 15:44 Reassessment: Report given to admitting nurse. mb9 Vital Signs: 09:49 BP 110 / 66; Pulse 102; Resp 23; Temp 99; Pulse Ox 96% ; Weight 88.45 kg; Height 6 ft. iw 1 in. (185.42 cm); Pain 5/10; 10:00 BP 110 / 66; Pulse 106; Resp 30; Pulse Ox 95% on R/A; Pain 3/10; mb9 11:00 BP 117 / 76; Pulse 88; Resp 23; Pulse Ox 97% on R/A; Pain 0/10; mb9 12:00 BP 120 / 83; Pulse 94; Resp 22; Pulse Ox 100% on R/A; Pain 0/10; mb9 13:13 BP 115 / 69; Pulse 90; Resp 21; Pulse Ox 100% on R/A; Pain 0/10; mb9 09:49 Body Mass Index 25.73 (88.45 kg, 185.42 cm) iw ED Course: 09:33 Patient arrived in ED. mr 09:36 Althea Mckeon RN is Primary Nurse. mb9 09:38 Adonay Davis MD is Attending Physician. dannie 09:50 EKG done, by ED staff, reviewed by Adonay Davis MD. mb9 09:52 Triage completed. iw 09:52 Arm band placed on right wrist. Patient placed in an exam room, on a stretcher. iw 09:52 Placed in gown. Bed in low position. Call light in reach. Side rails up X 1. mb9 10:00 First set of blood cultures drawn by me. aa5 10:03 Inserted saline lock: 20 gauge in left wrist, using aseptic technique. aa5 10:03 Initial lab(s) drawn, by me, sent to lab. aa5 10:17 COVID-19/FLU A+B Sent. mb9 10:17 Lipase Sent. mb9 10:17 Basic Metabolic Panel Sent. mb9 10:17 CBC with Diff Sent. mb9 10:17 LFT's Sent. mb9 10:17 Magnesium Sent. mb9 10:17 NT PRO-BNP Sent. mb9 10:17 PT-INR Sent. mb9 10:17 Troponin HS Sent. mb9 10:27 initiated a transfer with Danitza the [employer] [facility] at [facility] at the eb request of the patient. per Danitza they will have to decline the transfer/ they are currently holding admissions in their ER and have no beds available. 10:32 XRAY Chest (1 view) In Process Unspecified. EDMS 10:42 Carmine Hanley MD is Hospitalizing Provider. dannie 11:42 CT Chest For PE Angio In Process Unspecified. EDMS 11:43 CT Abd/Pelvis - IV Contrast Only In Process Unspecified. EDMS 13:16 No provider procedures requiring assistance completed. mb9 15:45 Patient admitted, IV remains in place. mb9 Administered Medications: 10:17 Drug: NS 0.9% 1000 ml Route: IV; Rate: 125 ml/hr; Site: left hand; mb9 11:05 Drug: SOLU-Medrol (methylPrednisoLONE) 125 mg Route: IVP; Site: left hand; mb9 13:09 Follow up: Response: No adverse reaction mb9 11:08 Drug: Pepcid (famotidine) 20 mg Route: IVP; Site: left hand; mb9 13:09 Follow up: Response: No adverse reaction mb9 11:10 Drug: Xopenex (levalbuterol) 2.5 mg Route: Inhalation; mb9 13:10 Follow up: Response: No adverse reaction mb9 11:10 Drug: AtroVENT (ipratropium) Aerosol 0.5 mg Route: Inhalation; mb9 13:10 Follow up: Response: No adverse reaction mb9 11:15 Drug: Rocephin (cefTRIAXone) 2 grams Route: IV; Rate: per protocol; Site: left hand; mb9 13:09 Follow up: Response: No adverse reaction mb9 13:10 Follow up: Response: No adverse reaction; IV Status: Infusion continued mb9 11:37 Drug: NS 0.9% 1000 ml Route: IV; Rate: 1 bolus; Site: left hand; mb9 13:09 Follow up: Response: No adverse reaction mb9 11:55 Drug: Zithromax (azithromycin) 500 mg Route: IVPB; Infused Over: 1 hrs; Site: left hand;mb9 13:09 Follow up: Response: No adverse reaction; IV Status: Completed infusion mb9 13:09 Drug: vancoMYCIN 1 grams Route: IVPB; Infused Over: 2 hrs; Site: left hand; mb9 Medication: 13:16 VIS not applicable for this client. mb9 Outcome: 10:43 Decision to Hospitalize by Provider. dannie 15:45 Admitted to Med/surg accompanied by tech, via wheelchair, with chart. mb9 15:45 Condition: stable 15:45 Instructed on the need for admit. 15:45 Patient left the ED. mb9 Signatures: Dispatcher [employer] EDAdonay Carter MD MD cha Rivera, Kemi Nicole, RN Maddie Preciado RN RN [email or web address] Theodora Arias, Althea Byrne, RN RN mb9 Corrections: (The following items were deleted from the chart) 16:18 16:17 Patient left the ED. mb9 mb9
--- NOTE | 2022-01-24 10:44 | EDPHYS ---
Physician Documentation [facility] Name: Nicolas Rojas Age: 66 yrs Sex: Male : 1955 Arrival Date: 01/24/2022 Time: 09:33 Bed 4 Private MD: ED Physician Adonay Davis HPI: 01/24 10:28 This 66 yrs old Male presents to ER via Wheelchair with complaints of Low BP, dannie Low O2, Vision Problem. 10:28 The patient has shortness of breath at rest, with light activity. Onset: The dannie symptoms/episode began/occurred 5 day(s) ago. Duration: The symptoms are continuous, and are steadily getting worse. The patient's shortness of breath has no apparent modifying factors. The patient presents with abdominal pain right lower quadrant. Onset: The symptoms/episode began/occurred 2 day(s) ago. The patient has experienced near-syncope, almost passed out, felt dizzy. Severity of symptoms: At their worst the symptoms were mild moderate in the emergency department the symptoms are unchanged. Historical: - Allergies: 09:52 No Known Allergies; iw - PMHx: 09:52 CAD; carcinoma; COPD; familial hypoalphalipoproteinemia; Hyperlipidemia; Hypertension; iw Hypothyroidism; - PSHx: 09:52 left lower lobectomy; iw - Immunization history:: Adult Immunizations up to date, Client reports receiving the 2nd dose of the Covid vaccine, Last tetanus immunization: up to date. - Social history:: Smoking status: Patient denies any tobacco usage or history of. - Family history:: not pertinent. ROS: 10:28 Constitutional: Negative for fever, chills, and weight loss, Eyes: Negative for injury, dannie pain, redness, and discharge, ENT: Negative for injury, pain, and discharge, Neck: Negative for injury, pain, and swelling. 10:28 Back: Negative for injury and pain, : Negative for injury, bleeding, discharge, and swelling, MS/Extremity: Negative for injury and deformity, Skin: Negative for injury, rash, and discoloration, Psych: Negative for depression, anxiety, suicide ideation, homicidal ideation, and hallucinations, Allergy/Immunology: Negative for hives, rash, and allergies, Endocrine: Negative for neck swelling, polydipsia, polyuria, polyphagia, and marked weight changes, Hematologic/Lymphatic: Negative for swollen nodes, abnormal bleeding, and unusual bruising. 10:28 Cardiovascular: Positive for palpitations. 10:28 Respiratory: Positive for cough, shortness of breath, at rest. 10:28 Abdomen/GI: Positive for abdominal pain, of the right lower quadrant. Exam: 10:38 Constitutional: This is a well developed, well nourished patient who is awake, alert, dannie and in no acute distress. Head/Face: Normocephalic, atraumatic. Eyes: Pupils equal round and reactive to light, extra-ocular motions intact. Lids and lashes normal. Conjunctiva and sclera are non-icteric and not injected. Cornea within normal limits. Periorbital areas with no swelling, redness, or edema. ENT: Nares patent. No nasal discharge, no septal abnormalities noted. Tympanic membranes are normal and external auditory canals are clear. Oropharynx with no redness, swelling, or masses, exudates, or evidence of obstruction, uvula midline. Mucous membranes moist. Neck: Trachea midline, no thyromegaly or masses palpated, and no cervical lymphadenopathy. Supple, full range of motion without nuchal rigidity, or vertebral point tenderness. No Meningismus. Chest/axilla: Normal chest wall appearance and motion. Nontender with no deformity. No lesions are appreciated. Abdomen/GI: Soft, non-tender, with normal bowel sounds. No distension or tympany. No guarding or rebound. No evidence of tenderness throughout. Back: No spinal tenderness. No costovertebral tenderness. Full range of motion. Male : Normal genitalia with no discharge or lesions. Skin: Warm, dry with normal turgor. Normal color with no rashes, no lesions, and no evidence of cellulitis. MS/ Extremity: Pulses equal, no cyanosis. Neurovascular intact. Full, normal range of motion. Neuro: Awake and alert, GCS 15, oriented to person, place, time, and situation. Cranial nerves II-XII grossly intact. Motor strength 5/5 in all extremities. Sensory grossly intact. Cerebellar exam normal. Normal gait. Psych: Awake, alert, with orientation to person, place and time. Behavior, mood, and affect are within normal limits. 10:38 Cardiovascular: Rate: tachycardic, Rhythm: regular, Pulses: Pulses are 4+ in bilateral radial, brachial, femoral, popliteal, posterior tibial and and dorsalis pedis arteries.. Heart sounds: normal, normal S1and S2, no S3 or S4, no murmur, no rub, no gallop, Edema: is not appreciated, JVD: is not appreciated. 10:38 ECG was reviewed by the Attending Physician. Vital Signs: 09:49 BP 110 / 66; Pulse 102; Resp 23; Temp 99; Pulse Ox 96% ; Weight 88.45 kg; Height 6 ft. iw 1 in. (185.42 cm); Pain 5/10; 10:00 BP 110 / 66; Pulse 106; Resp 30; Pulse Ox 95% on R/A; Pain 3/10; mb9 11:00 BP 117 / 76; Pulse 88; Resp 23; Pulse Ox 97% on R/A; Pain 0/10; mb9 12:00 BP 120 / 83; Pulse 94; Resp 22; Pulse Ox 100% on R/A; Pain 0/10; mb9 13:13 BP 115 / 69; Pulse 90; Resp 21; Pulse Ox 100% on R/A; Pain 0/10; mb9 09:49 Body Mass Index 25.73 (88.45 kg, 185.42 cm) iw MDM: 09:38 Patient medically screened. dannie 10:39 Differential diagnosis: Anemia Bronchitis CHF exacerbation, Chronic Obstructive dannie Pulmonary Disease pneumonia, pulmonary edema, Pulmonary Embolism reactive airway disease, Unstable Angina appendicitis, bowel obstruction, Cholelithiasis, diverticulitis, gastritis, gastroesophageal reflux disease, Hepatitis, non-specific abd pain, pancreatitis, Ureterolithiasis, urinary tract infection. Antibiotic administration: Rocephin and Zithromax given. Differential Diagnosis: cardiac arrhythmia, cerebrovascular accident, sepsis, transient ischemic attack, vasovagal episode. The patient's Wells Deep Vein Thrombosis Score was calculated as follows: Heart Rate >100 BPM (1.5 Pts) Total Score: 0-2 Pts- Low Risk. Differential Diagnosis: Obstructed Airway Bronchitis Influenza Upper Respiratory Infection Sinusitis Pharyngitis Viral Syndrome Pneumonia. The patient's pulmonary embolism risk score was calculated as follows: the patients heart rate is greater than 100 beats per minute (1.5 Pts) Total Score: 0-2 points. This patient was found to be at low risk for a pulmonary embolism by using the Well's assessment criteria. Immunization status: Pneumococcal vaccine: Influenza vaccine: Data reviewed: vital signs, nurses notes, lab test result(s), EKG, radiologic studies, CT scan, plain films. Data interpreted: studio potter: rate is 95 beats/min, rhythm is regular, Pulse oximetry: on room air is 95 %. Test interpretation: by ED physician or midlevel provider: ECG, plain radiologic studies. Counseling: I had a detailed discussion with the patient and/or guardian regarding: the historical points, exam findings, and any diagnostic results supporting the discharge/admit diagnosis, lab results, radiology results, the need for further work-up and treatment in the hospital. 01/24 09:45 Order name: Basic Metabolic Panel; Complete Time: 12:26 [facility] 01/24 09:45 Order name: CBC with Diff; Complete Time: 12:26 [facility] 01/24 09:45 Order name: LFT's; Complete Time: 12:26 [facility] 01/24 09:45 Order name: Magnesium; Complete Time: 12:26 [facility] 01/24 09:45 Order name: NT PRO-BNP; Complete Time: 12:26 [facility] 01/24 09:45 Order name: PT-INR; Complete Time: 12:26 [facility] 01/24 09:45 Order name: Troponin HS; Complete Time: 12:26 [facility] 01/24 09:45 Order name: Blood Culture Adult (2) [facility] 01/24 09:45 Order name: Lactate w/ 2H reflex if indic.; Complete Time: 12:26 [facility] 01/24 09:45 Order name: COVID-19/FLU A+B; Complete Time: 12:26 [facility] 01/24 09:45 Order name: Lipase; Complete Time: 12:26 [facility] 01/24 14:06 Order name: CBC with Automated Diff EDAR 01/24 14:06 Order name: CBC with Automated Diff EDMS 01/24 14:06 Order name: Comprehensive Metabolic Panel EDAR 01/24 09:45 Order name: XRAY Chest (1 view) [facility] 01/24 10:27 Order name: CT Chest For PE Angio; Complete Time: 12:26 [facility] 01/24 10:28 Order name: CT Abd/Pelvis - IV Contrast Only; Complete Time: 12:26 [facility] 01/24 14:06 Order name: Comprehensive Metabolic Panel EDAR 01/24 14:06 Order name: Lactate w/ 2H reflex if indic. EDMS 01/24 14:06 Order name: Lactate w/ 2H reflex if indic. EDMS 01/24 14:06 Order name: Lipid Profile EDMS 01/24 14:06 Order name: Lipid Profile EDMS 01/24 14:06 Order name: Magnesium EDMS 01/24 14:06 Order name: Magnesium EDMS 01/24 14:06 Order name: Phosphorus EDMS 01/24 14:06 Order name: Phosphorus EDMS 01/24 14:06 Order name: Blood Culture EDMS 01/24 14:06 Order name: Sputum Culture EDAR 01/24 14:06 Order name: Chest Single View EDMS 01/24 16:17 Order name: Sputum Culture 9 01/24 09:45 Order name: EKG; Complete Time: 09:47 [facility] 01/24 09:45 Order name: Cardiac monitoring; Complete Time: 09:57 [facility] 01/24 09:45 Order name: EKG - Nurse/Tech; Complete Time: 09:57 [facility] 01/24 09:45 Order name: IV Saline Lock; Complete Time: 10:12 [facility] 01/24 09:45 Order name: Labs collected and sent; Complete Time: 10:12 [facility] 01/24 09:45 Order name: O2 Per Protocol; Complete Time: 09:57 [facility] 01/24 09:45 Order name: O2 Sat Monitoring; Complete Time: 09:57 [facility] 01/24 14:06 Order name: Heart Healthy EDAR 01/24 14:06 Order name: Chest Single View EDAR EC:38 Rate is 96 beats/min. Rhythm is regular. QRS [place] is Normal. IA interval is prolonged dannie at 212 msec. QRS interval is normal. No Q waves. T waves are Normal. No ST changes noted. Clinical impression: NSR w/ Non-specific ST/T Changes and No evidence of ischemia. Interpreted by me. Reviewed by me. Administered Medications: 10:17 Drug: NS 0.9% 1000 ml Route: IV; Rate: 125 ml/hr; Site: left hand; mb9 11:05 Drug: SOLU-Medrol (methylPrednisoLONE) 125 mg Route: IVP; Site: left hand; mb9 13:09 Follow up: Response: No adverse reaction mb9 11:08 Drug: Pepcid (famotidine) 20 mg Route: IVP; Site: left hand; mb9 13:09 Follow up: Response: No adverse reaction mb9 11:10 Drug: Xopenex (levalbuterol) 2.5 mg Route: Inhalation; mb9 13:10 Follow up: Response: No adverse reaction mb9 11:10 Drug: AtroVENT (ipratropium) Aerosol 0.5 mg Route: Inhalation; mb9 13:10 Follow up: Response: No adverse reaction mb9 11:15 Drug: Rocephin (cefTRIAXone) 2 grams Route: IV; Rate: per protocol; Site: left hand; mb9 13:09 Follow up: Response: No adverse reaction mb9 13:10 Follow up: Response: No adverse reaction; IV Status: Infusion continued mb9 11:37 Drug: NS 0.9% 1000 ml Route: IV; Rate: 1 bolus; Site: left hand; mb9 13:09 Follow up: Response: No adverse reaction mb9 11:55 Drug: Zithromax (azithromycin) 500 mg Route: IVPB; Infused Over: 1 hrs; Site: left hand;mb9 13:09 Follow up: Response: No adverse reaction; IV Status: Completed infusion mb9 13:09 Drug: vancoMYCIN 1 grams Route: IVPB; Infused Over: 2 hrs; Site: left hand; mb9 Disposition Summary: 01/24/22 10:43 Hospitalization Ordered Hospitalization Status: Inpatient Admission dannie Provider: Carmine Hanley cha Location: Telemetry/MedSurg (Inpatient) dannie Condition: Fair dannie Problem: new dannie Symptoms: have improved dannie Bed/Room Type: Standard dannie Room Assignment: 222(01/24/22 14:33) eb Diagnosis - Dyspnea dannie - Hypotension, unspecified - RESOLVED dannie - Syncope Near dannie - Pneumonia due to other specified bacteria - BILATERAL MULTIFOCAL dannie - Dehydration dannie Forms: - Medication Reconciliation Form dannie - SBAR form dannie Signatures: Dispatcher [employer] Adonay Elliott MD MD cha Williams, Irene RN Theodora Arellano Mary Beth RN RN mb9 Corrections: (The following items were deleted from the chart) 14:33 10:43 dannie eb
[2022-01-24] MEDS ORDERED: METHYLPREDNISOLONE 125 MG INJ ONE (10:45)
[2022-01-24] MEDS ORDERED: CEFTRIAXONE 2000 MG/VIAL ONE (10:46)
[2022-01-24] MEDS ORDERED: AZITHROMYCIN 500 MG INJ IVPB ONE (10:46)
[2022-01-24] MEDS ORDERED: IPRATROPIUM BROM 0.5MG/2.5ML ONE (10:46)
[2022-01-24] MEDS ORDERED: LEVALBUTEROL 1.25 MG/3 ML NEB ONE (10:46)
[2022-01-24] MEDS ORDERED: FAMOTIDINE 20 MG/2 ML VIAL IV ONE (10:47)
[2022-01-24] MEDS ORDERED: NA CHLORIDE 0.9% 250 ML ONE ×2 (10:47→12:40)
[2022-01-24 11:02] LABS: Albumin 3.2 g/dL (3.4-5.0); Bilirubin Direct 0.3 mg/dL (0-0.2); Magnesium 1.8 mg/dL (1.8-2.4); Potassium 3.9 mmol/L (3.5-5.1); Protein, Total 7.4 g/dL (6.4-8.2); Troponin High Sensitivity 6.7 pg/mL (<58.9)
[2022-01-24 11:16] LABS: SARS-COV-2 RT PCR NEGATIVE (NEGATIVE)
--- NOTE | 2022-01-24 12:07 | RAD REPORT ---
EXAM DESCRIPTION: CT - Chest For Pe Angio - 01/24/2022 11:40 am CLINICAL HISTORY: Shortness of breath COMPARISON: 2019 TECHNIQUE: Dynamically enhanced axial 3 mm thick images of the chest were obtained during administra tion of <100> mL Isovue 370 IV contrast. Coronal and oblique reconstruction images were generated and reviewed. Exam utilizes a protocol for optimal evaluation of pulmonary arterial tree. Maximum intensity projections 3D imaging was utilized All CT scans are performed using dose optimization technique as appropriate and may include automated exposure control or mA/KV adjustment according to patient size. FINDINGS: The opacification of pulmonary arteries is suboptimal. No pulmonary embolism seen. A thoracic aortic aneurysm is not noted. Small left pleural effusion. A pericardial effusion is not seen. Moderate left and [id number] right alveolar pulmonary opacities. Left lung volume loss IMPRESSION: No gross evidence of a pulmonary embolism Moderate left and [id number] right alveolar pulmonary opacities probably pneumonia. This should be followed until it is clear to help exclude a post obstructive process/underlying mass
--- NOTE | 2022-01-24 12:12 | RAD REPORT ---
EXAM DESCRIPTION: CT - Abdomen Pelvis W Contrast - 01/24/2022 11:41 am CLINICAL HISTORY: Abdominal pain COMPARISON: 2009 TECHNIQUE: Computed axial tomography of the abdomen pelvis was obtained. 100 cc Isovue-300 was admin istered intravenously. Oral contrast was not requested which limits evaluation of bowel and appendix All CT scans are performed using dose optimization technique as appropriate and may include automated exposure control or mA/KV adjustment according to patient size. FINDINGS: The liver, spleen, pancreas, adrenal and kidneys appear unremarkable. There is no evidence of diverticulitis. Mild gallbladder distention. Prostate gland is mildly to moderately enlarged. Bladder wall thickening may be secondary to chronic outlet obstruction. IMPRESSION: Mild gallbladder distention
--- NOTE | 2022-01-24 12:38 | RAD REPORT ---
EXAM DESCRIPTION: Jordin Single View01/24/2022 10:30 am CLINICAL HISTORY: Cough COMPARISON: 2019 FINDINGS: Moderate left and [id number] right alveolar opacities likely pneumonia Heart is normal size
[2022-01-24] MEDS ORDERED: VANCOMYCIN 1 GM/VIAL ONE (12:40)
[2022-01-24] MEDS ORDERED: ONDANSETRON 4 MG/2 ML VIAL IV PRN (14:00)
[2022-01-24] MEDS ORDERED: ACETAMINOPHEN 500 MG TAB PO PRN (14:00)
--- NOTE | 2022-01-24 14:16 | P.HP ---
Certification for Inpatient Patient admitted to: Inpatient With expected LOS: >2 Midnights Patient will require the following post-hospital care: None Practitioner: I am a practitioner with admitting privileges, knowledge of patient current condition, hospital course, and medical plan of care. Services: Services provided to patient in accordance with Admission requirements found in Title 42 Section 412.3 of the Code of Federal Regulations Patient History Date of Service: 01/24/22 Reason for admission: Failed outpatient antibiotic for multifocal pneumonia History of Present Illness: Patient is a 66-year-old gentleman who was seen at [facility]'s emergency room a few days ago for pneumonia. Patient was prescribed azithromycin and Augmentin at discharge. Patient also has a history of melanoma of the left lower lobe of the lung which was resected. Patient had a lobectomy about a year ago and has been on immunotherapy since that time. He almost completed his planned course of immunotherapy but was not able to finish the last 2 doses. He has been doing well up until this illness. He has had multifocal pneumonia on the CAT scan a couple of days ago. No leukocytosis. Patient was having issues of cough and congestion. Once again he has multifocal pneumonia seen today on chest x-ray and CT scan. He will be admitted to the hospital for IV antibiotic therapy. Allergies No Known Allergies Allergy (Verified 05/05/18 02:02) Home Medications: Aspirin Chewable [Aspirin Chewable*] 81 mg PO DAILY 05/05/18 Isosorbide Mononitrate [Isosorbide Mononitrate ER] 30 mg PO DAILY 05/05/18 Metoprolol Tartrate [Lopressor*] 25 mg PO BID 05/05/18 Nitroglycerin 0.4 mg SL PRN 05/05/18 Levothyroxine [Synthroid*] 1 tab PO DAILY 01/25/22 Pantoprazole [Protonix Tab*] 40 mg PO DAILY 01/25/22 Albuterol Neb [Proventil 0.083% Neb Soln] 2.5 mg NEB [id number] #60 amp 01/26/22 Ipratropium Neb [Atrovent*] 0.5 mg NEB [id number] #60 amp 01/26/22 levoFLOXacin [Levaquin*] 750 mg PO DAILY #7 tab 01/26/22 predniSONE [Prednisone*] 20 mg PO BID #20 tab 01/26/22 - Past Medical/Surgical History Diabetic: No -: CAD -: COPD -: HYPERLIPIDEMIA -: GERD -: BENIGN ESSENTIAL HYPERTENSION -: CHRONIC KRIS PAIN -: 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 moist/pink, EOMI, Sclerae nonicteric Neck: Supple, 2+ carotid pulse no bruit, No LAD, Without JVD or thyroid abnormality Respiratory: Diminished Cardiovascular: Regular rate/rhythm, Normal S1 S2, No murmurs Gastrointestinal: Normal bowel sounds, Soft and benign, Non-distended, No tenderness Musculoskeletal: No clubbing, No swelling, No tenderness Integumentary: No rashes Neurological: Normal gait, Normal speech, Normal strength at 5/5 x4 extr, Normal tone, Sensation intact, Cranial nerves 3-12 intact, Normal affect Lymphatics: No axilla or inguinal lymphadenopathy - Studies Laboratory Data (last 24 hrs) 01/24/22 10:05: PT 14.3 H, INR 1.30 01/24/22 10:05: WBC 15.30 H, Hgb 13.1 L, Hct 39.3 L, Plt Count 345 01/24/22 10:05: Sodium 131 L, Potassium 3.9, BUN 13, Creatinine 1.16, Glucose 90, Magnesium 1.8, Total Bilirubin 1.0, AST 15, ALT 14, Alkaline Phosphatase 77, Lipase 133 Assessment & Plan - Problems (Diagnosis) (1) Multifocal pneumonia Status: Acute (2) S/P lobectomy of lung Status: Acute (3) H/O Malignant melanoma Status: Acute (4) History of hypertension Status: Acute - Plan 1. Continue with IV antibiotics 2. Awaiting sputum and blood culture 3. Repeat chest x-ray 4. Will proceed with CT scan of the chest 5. Respiratory isolation is not needed 6. Continue with nebs as needed 7. O2 per protocol 8. Continue with gentle hydration 9. Repeat labs including CBC and renal function in a.m. 10. GI and DVT prophylaxis Discharge Plan: Home Plan to discharge in: Greater than 2 days - Advance Directives Does patient have a Living Will: No Does patient have a Durable POA for Healthcare: Yes - Code Status/Comfort Care Code Status Assessed: Yes Code Status: Full Code Critical Care: No Time Spent Managing PTS Care (In Minutes): 45
[2022-01-24] MEDS: IPRATROPIUM BROM 0.5MG/2.5ML NEB SCH ×2 (14:28→21:35)
[2022-01-24] MEDS: ALBUTEROL 2.5 MG/3 ML NEB SOL NEB SCH ×2 (14:28→21:35)
[2022-01-24] MEDS ORDERED: VANCOMYCIN 1.25 GM in NA CHLORIDE 0.9% 250 ML IVPB ONE (16:00)
[2022-01-24] MEDS: METHYLPREDNISOLONE 40 MG INJ IV SCH (17:16)
[2022-01-24] MEDS: NA CHLORIDE 0.9% 1,000 ML IV SCH (17:16)
[2022-01-24] MEDS: Levofloxacin 750mg IV 750 MG/150 ML BAG IV SCH (17:16)
[2022-01-24 17:32] VITALS: BMI 25.7
[2022-01-25] MEDS: METHYLPREDNISOLONE 40 MG INJ IV SCH ×4 (00:36→16:59)
[2022-01-25] MEDS: MORPHINE 2 MG/ML SYR IV PRN ×2 (00:53→20:58)
[2022-01-25] MEDS: ALBUTEROL 2.5 MG/3 ML NEB SOL NEB SCH ×4 (02:55→20:00)
[2022-01-25] MEDS: IPRATROPIUM BROM 0.5MG/2.5ML NEB SCH ×4 (02:55→20:00)
[2022-01-25] MEDS: NA CHLORIDE 0.9% 1,000 ML IV SCH ×2 (03:20→06:34)
[2022-01-25 04:01] LABS: Absolute Lymphocytes (CBC) 0.9 K/uL (0.7-4.9); Hematocrit 38.9 % (39.6-49.0); Lymphocytes % 9.8 % (15.3-44.8); MCV 84.6 fL (80-100); MPV 7.2 fL (7.6-11.3)
[2022-01-25 04:20] LABS: Albumin 3.2 g/dL (3.4-5.0); Bilirubin Total 0.6 mg/dL (0.2-1.0); Magnesium 1.8 mg/dL (1.8-2.4); Phosphorus 2.4 mg/dL (2.5-4.9); Potassium 3.3 mmol/L (3.5-5.1); Protein, Total 7.8 g/dL (6.4-8.2)
[2022-01-25] MEDS ORDERED: POTASSIUM CL SA 10 MEQ TAB PO ONE ×2 (04:49→21:00)
[2022-01-25] MEDS ORDERED: MAGNESIUM SULFATE 1 gm IVPB 1 GM/100 ML BAG IV ONE (04:50)
[2022-01-25] MEDS: POTASS/SODIUM PHOSPHATE 1 PKT POWD.PACK PO SCH ×3 (05:26→07:00)
[2022-01-25] MEDS: HYDRALAZINE HCL 20 MG/ML VIAL IV PRN ×2 (05:27→16:59)
--- NOTE | 2022-01-25 07:15 | RAD REPORT ---
EXAM DESCRIPTION: RAD - Chest Single View - 01/25/2022 6:52 am CLINICAL HISTORY: Pneumonia COMPARISON: CT chest 01/24/2022, portable chest 01/24/2022 TECHNIQUE: AP portable chest image was obtained 01/25/2022 6:52 am . FINDINGS: Lung volumes are low and there is respiratory motion degradation. Mid and lower left lung field pneumonia findings are not substantially different from the prior study. Patient's known the ri t base pneumonia is more difficult to evaluate on portable imaging. There may be slight improvement of though significant infiltrate remains. Heart size appears stable. Left-sided pneumonia changes obscure the heart border. Mediastinum is dis torted by significant rotation. No measurable pleural effusion and no pneumothorax. No acute bony abnormality seen. No acute aortic findings suspected. IMPRESSION: Left greater than right pneumonia findings not substantially different from prior day im aging.
[2022-01-25] MEDS: NA CHLORIDE 0.9% IVPB SCH (10:17)
[2022-01-25] MEDS: VANCOMYCIN IVPB SCH (10:17)
[2022-01-25] MEDS: PANTOPRAZOLE 40MG TABLET PO SCH (10:18)
[2022-01-25] MEDS: METOPROLOL TAR 25 MG TAB PO SCH ×2 (10:18→21:00)
[2022-01-25] MEDS: ENOXAPARIN 40 MG/0.4 ML SQ SCH (10:18)
[2022-01-25] MEDS: ASPIRIN 81 MG CHEWABLE TABLET PO SCH (10:18)
[2022-01-25] MEDS: Levofloxacin 750mg IV 750 MG/150 ML BAG IV SCH (16:59)
[2022-01-25] MEDS ORDERED: LABETALOL 20 MG/4ML SYRINGE IV ONE (18:28)
[2022-01-26] MEDS: HYDRALAZINE HCL 20 MG/ML VIAL IV PRN ×2 (00:27→06:12)
[2022-01-26] MEDS: METHYLPREDNISOLONE 40 MG INJ IV SCH ×3 (00:27→12:06)
[2022-01-26] MEDS: ALBUTEROL 2.5 MG/3 ML NEB SOL NEB SCH ×3 (02:00→14:00)
[2022-01-26] MEDS: IPRATROPIUM BROM 0.5MG/2.5ML NEB SCH ×3 (02:00→14:00)
[2022-01-26] MEDS: NA CHLORIDE 0.9% IVPB SCH (03:39)
[2022-01-26] MEDS: VANCOMYCIN IVPB SCH (03:39)
[2022-01-26] MEDS: NA CHLORIDE 0.9% 1,000 ML IV SCH (06:11)
[2022-01-26 08:14] LABS: Magnesium 2.1 mg/dL (1.8-2.4); Phosphorus 2.6 mg/dL (2.5-4.9)
[2022-01-26 08:19] LABS: Albumin 3.1 g/dL (3.4-5.0); Bilirubin Total 0.4 mg/dL (0.2-1.0); Potassium 4.1 mmol/L (3.5-5.1); Protein, Total 7.2 g/dL (6.4-8.2)
[2022-01-26] MEDS: ASPIRIN 81 MG CHEWABLE TABLET PO SCH (09:08)
[2022-01-26] MEDS: METOPROLOL TAR 25 MG TAB PO SCH (09:08)
[2022-01-26] MEDS: PANTOPRAZOLE 40MG TABLET PO SCH (09:13)
[2022-01-26] MEDS: ENOXAPARIN 40 MG/0.4 ML SQ SCH (09:13)
[2022-01-26 09:27] VITALS: O2SAT 96
--- NOTE | 2022-01-26 12:01 | P.CNS ---
Date of Consult: 01/26/22 Reason for Consult: Pneumonia Chief Complaint: Failed outpatient antibiotic for multifocal pneumonia History of Present Illness: Patient is 66 years of age to the hospital complaining of coughing fever chills worsening shortness of breath he was seen at [facility]'s emergency room was prescribed azithromycin and admitted no change for you to get worse is a history of lobectomy history of melanoma was treated with Yervoy immunomodulator that was stopped about 6 weeks ago complaining of tingling in his extremities presumed peripheral neuropathy patient does not smoke Allergies No Known Allergies Allergy (Verified 05/05/18 02:02) Home Medications: Aspirin Chewable [Aspirin Chewable*] 81 mg PO DAILY 05/05/18 Isosorbide Mononitrate [Isosorbide Mononitrate ER] 30 mg PO DAILY 05/05/18 Metoprolol Tartrate [Lopressor] 25 mg PO BID 05/05/18 Naproxen 375 mg PO Q6HP PRN 05/05/18 Nitroglycerin 0.4 mg SL PRN 05/05/18 Levothyroxine [Synthroid*] 1 tab PO DAILY 01/25/22 Pantoprazole [Protonix Tab] 40 mg PO DAILY 01/25/22 - Past Medical/Surgical History Diabetic: No -: CAD -: COPD -: HYPERLIPIDEMIA -: GERD -: BENIGN ESSENTIAL HYPERTENSION -: CHRONIC KRIS PAIN -: 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 -: PERIPHERAL NERVE DISEASE -: HYPOTHYROIDISM -: FAMILIAL HYPOALPHALIPOPROTEINEMIA -: Cardiac catheterization -: Skin excisional biopsy - Family History Father Medical History: Cancer Mother Medical History: Cancer - Social History Alcohol use: Yes CD- Drugs: No Caffeine use: Yes Review of Systems 10-point ROS is otherwise unremarkable General: Weakness Respiratory: Cough, Shortness of Breath Physical Examination Temp Pulse Resp BP Pulse Ox 97.8 F 69 16 147/62 H 97 01/26/22 08:00 01/26/22 09:08 01/26/22 08:00 01/26/22 09:08 01/26/22 08:00 General: Alert, Oriented x3 Respiratory: Diminished (Manage the left base some chronic) Cardiovascular: No edema, Regular rate/rhythm, Normal S1 S2 Gastrointestinal: Normal bowel sounds, Soft and benign Musculoskeletal: No clubbing, No swelling - Problems (1) Pneumonia Current Visit: Yes Status: Acute Plan: Patient is 66 years of age with a history of melanoma on her voice immunotherapy stopped about 6 weeks ago due to peripheral neuropathy being treated in [place] admitted with possibly left lower lobe pneumonia procalcitonin white count was elevated he failed outpatient therapy with Augmentin and Zithromax inflammatory changes noted left greater than right patient has no fever or chills currently on levofloxacin and vancomycin is quite possible that he has an immune mediated reaction possibly pneumonitis recommend add some steroids DC vancomycin changed over to p.o. follow-up levofloxacin oxygenation satisfactory plan for discharge follow-up with me in 2 weeks Qualifiers: Aspiration pneumonia type: unspecified
[2022-01-26] MEDS ORDERED: predniSONE 20 MG TAB PO SCH (12:30)
--- NOTE | 2022-01-26 13:52 | EKG ---
Test Date: 2022-01-24 Test Time: 09:54:10 Product Craftsman: MB MEASUREMENT RESULTS: Intervals: Rate: 96 FL: 212 QRSD: 96 QT: 366 QTc: 462 Winters: P: 75 FL: 212 QRS: 97 T: 25 INTERPRETIVE STATEMENTS: Sinus rhythm with 1st degree AV block with frequent premature ventricular complexes Rightward axis Incomplete right bundle branch block Anterior infarct, age undetermined Abnormal ECG Compared to ECG 05/04/2018 18:23:14 First degree AV block now present Right-axis deviation now present Incomplete right bundle-branch block now present Myocardial infarct finding now present Prolonged QT interval no longer present Electronically Signed On 01-26-22 13:49:53 BOTTOM SANDER by Gunnar Bustillo
[2022-01-26] MEDS ORDERED: ISOSORBIDE MONO SR 30 MG TAB PO SCH (16:00)
--- NOTE | 2022-01-26 16:25 | RAD REPORT ---
EXAM DESCRIPTION: Nel[place] Single View01/26/2022 3:19 pm CLINICAL HISTORY: Cough COMPARISON: January 25, 2022 FINDINGS: Mild improvement in the bilateral pulmonary opacities which are worse on the left The heart is normal size
[2022-01-26] MEDS ORDERED: VANCOMYCIN 1.75 GM in NA CHLORIDE 0.9% 500 ML IVPB SCH (22:00)
[2022-01-26 23:36] VITALS: BP 120/70; TEMP 98
--- NOTE | 2022-01-26 23:41 | P.PN ---
Subjective Date of Service: 01/25/22 Subjective: No new changes, No C/O voiced, Improving Review of Systems 10-point ROS is otherwise unremarkable Physical Examination - Vital Signs Temperature: 98 F Blood Pressure: 120/70 Pulse: 80 Respirations: 24 Pulse Ox (%): 90 - Physical Exam General: Alert, In no apparent distress, Oriented x3 Respiratory: Diminished Cardiovascular: Regular rate/rhythm, Normal S1 S2, No murmurs Gastrointestinal: Normal bowel sounds, Soft and benign, Non-distended, No tenderness Musculoskeletal: No clubbing, No swelling, No tenderness Neurological: Sensation intact, Cranial nerves 3-12 intact - Studies Medications List Reviewed: Yes Assessment & Plan - Problems (Diagnosis) (1) Multifocal pneumonia Status: Acute (2) S/P lobectomy of lung Status: Acute (3) H/O Malignant melanoma Status: Acute (4) History of hypertension Status: Acute - Plan Continue with plan of care as mentioned below: 1. Continue with IV antibiotics 2. Awaiting sputum and blood culture 3. Repeat chest x-ray 4. Will proceed with CT scan of the chest 5. Respiratory isolation is not needed 6. Continue with nebs as needed 7. O2 per protocol 8. Continue with gentle hydration 9. Repeat labs including CBC and renal function in a.m. 10. GI and DVT prophylaxis Discharge Plan: Home Plan to discharge in: 24 Hours - Advance Directives Does patient have a Living Will: No Does patient have a Durable POA for Healthcare: Yes - Code Status/Comfort Care Code Status: Full Code Critical Care: No Time Spent Managing PTS Care (In Minutes): 35
--- NOTE | 2022-01-26 23:43 | P.DS ---
Discharge Date: 01/26/22 Disposition: ROUTINE DISCHARGE Discharge Condition: GOOD Reason for Admission: Failed outpatient antibiotic for multifocal pneumonia - Problems (1) Multifocal pneumonia Status: Acute (2) S/P lobectomy of lung Status: Acute (3) H/O Malignant melanoma Status: Acute (4) History of hypertension Status: Acute Brief History of Present Illness: Patient is a 66-year-old gentleman who was seen at [facility]'s emergency room a few days ago for pneumonia. Patient was prescribed azithromycin and Augmentin at discharge. Patient also has a history of melanoma of the left lower lobe of the lung which was resected. Patient had a lobectomy about a year ago and has been on immunotherapy since that time. He almost completed his planned course of immunotherapy but was not able to finish the last 2 doses. He has been doing well up until this illness. He has had multifocal pneumonia on the CAT scan a couple of days ago. No leukocytosis. Patient was having issues of cough and congestion. Once again he has multifocal pneumonia seen today on chest x-ray and CT scan. He will be admitted to the hospital for IV antibiotic therapy. Hospital Course: Patient has done well during hospital stay. Clinically, patient is much better. At this time, patient is stable for discharge home. Patient will follow-up with consultants and PCP as an outpatient. Vital Signs/Physical Exam: Temp Pulse Resp BP Pulse Ox 98 F 80 24 H 120/70 90 L 01/26/22 23:42 01/26/22 23:42 01/26/22 23:42 01/26/22 23:42 01/26/22 23:42 General: Alert, In no apparent distress, Oriented x3 Laboratory Data at Discharge: WBC 8.70 K/uL (4.3-10.9) 01/25/22 03:50 Hgb 13.5 g/dL (13.6-17.9) L 01/25/22 03:50 Hct 38.9 % (39.6-49.0) L 01/25/22 03:50 Plt Count 336 K/uL (152-406) 01/25/22 03:50 PT 14.3 SECONDS (9.5-12.5) H 01/24/22 10:05 INR 1.30 01/24/22 10:05 Sodium 136 mmol/L (136-145) D 01/26/22 07:31 Potassium 4.1 mmol/L (3.5-5.1) D 01/26/22 07:31 BUN 11 mg/dL (7-18) 01/26/22 07:31 Creatinine 0.86 mg/dL (0.55-1.3) 01/26/22 07:31 Glucose 172 mg/dL (74-106) H 01/26/22 07:31 Phosphorus 2.6 mg/dL (2.5-4.9) 01/26/22 07:22 Magnesium 2.1 mg/dL (1.8-2.4) 01/26/22 07:22 Total Bilirubin 0.4 mg/dL (0.2-1.0) 01/26/22 07:31 AST 13 U/L (15-37) L 01/26/22 07:31 ALT 17 U/L (12-78) 01/26/22 07:31 Alkaline Phosphatase 75 U/L (45-117) 01/26/22 07:31 Triglycerides 70 mg/dL (<150) 01/25/22 03:50 Cholesterol 154 mg/dL (<200) 01/25/22 03:50 HDL Cholesterol 30 mg/dL (40-60) L 01/25/22 03:50 Cholesterol/HDL Ratio 5.13 01/25/22 03:50 Lipase 133 U/L (73-393) 01/24/22 10:05 Home Medications: Aspirin Chewable [Aspirin Chewable*] 81 mg PO DAILY 05/05/18 Isosorbide Mononitrate [Isosorbide Mononitrate ER] 30 mg PO DAILY 05/05/18 Metoprolol Tartrate [Lopressor*] 25 mg PO BID 05/05/18 Nitroglycerin 0.4 mg SL PRN 05/05/18 Levothyroxine [Synthroid*] 1 tab PO DAILY 01/25/22 Pantoprazole [Protonix Tab*] 40 mg PO DAILY 01/25/22 Albuterol Neb [Proventil 0.083% Neb Soln] 2.5 mg NEB [id number] #60 amp 01/26/22 Ipratropium Neb [Atrovent*] 0.5 mg NEB [id number] #60 amp 01/26/22 levoFLOXacin [Levaquin*] 750 mg PO DAILY #7 tab 01/26/22 predniSONE [Prednisone*] 20 mg PO BID #20 tab 01/26/22 New Medications: Ipratropium Neb [Atrovent*] 0.5 mg NEB [id number] #60 amp levoFLOXacin [Levaquin*] 750 mg PO DAILY #7 tab predniSONE [Prednisone*] 20 mg PO BID #20 tab Albuterol Neb [Proventil 0.083% Neb Soln] 2.5 mg NEB [id number] #60 amp Physician Discharge Instructions: -DC IV and DC home if CXR is negative -Follow-up with PCP in 1 to 2 weeks -Follow-up with Pulmonary in 1 to 2 weeks -Please call Dr. Hanley at [phone] if any questions regarding hospital stay -Please call nursing station at [phone] if any nursing or medication questions -Return to the emergency room if symptoms worsen Diet: AHA Activity: Fall precautions Followup: MELVIN CHARLES [Primary Care Provider] - 1-2 Weeks Time spent managing pt's care (in minutes): 35
[2022-01-27] MEDS ORDERED: LEVOTHYROXINE SOD 0.075 MG TAB PO SCH (06:30)
[2022-01-27] MEDS ORDERED: levoFLOXacin 750 MG TAB PO SCH (09:00)
== END 2022-01-26 16:50 | disposition home or self-care (01) | DRG 179 ==
LOC: ER 09:31 → ERHOLD 14:00 → 2ND 15:44
PROVIDERS: ADMIT Hospitalist; ATTEND Hospitalist
DX: J69.0 Pneumonitis due to inhalation of food and vomit (principal); E78.5 Hyperlipidemia, unspecified; I10 Essential (primary) hypertension; G89.29 Other chronic pain; M54.9 Dorsalgia, unspecified; K21.9 Gastro-esophageal reflux disease without esophagitis; E03.9 Hypothyroidism, unspecified; E86.0 Dehydration; I95.9 Hypotension, unspecified; J44.9 Chronic obstructive pulmonary disease, unspecified; I25.10 Atherosclerotic heart disease of native coronary artery without angina pectoris; Z90.49 Acquired absence of other specified parts of digestive tract; Z79.52 Long term (current) use of systemic steroids; Z79.82 Long term (current) use of aspirin; Z85.118 Personal history of other malignant neoplasm of bronchus and lung; Z79.890 Hormone replacement therapy; Z79.899 Other long term (current) drug therapy; Z20.822 Contact with and (suspected) exposure to COVID-19
CPT/HCPCS: 0240U; 36415; 71045; 71275; 74177; 80048; 80053; 80061; 80076; 80202; 83605; 83690; 83735; 83880; 84100; 84132; 84145; 84484; 85025; 85610; 87040; 87070; 87205; 93005; 94640; 94760; 96365; 96375; 99285; J0360; J0456; J0696; J1650; J2270; J2920; J2930; J3370; J3475; J7030; J7040; J7050; J7512; J7613; J7614; J7644; Q9967

== ENCOUNTER 2024-01-29 11:44 | Inpatient (IN) | payer OTHER ==
--- NOTE | 2024-01-29 12:36 | RAD REPORT ---
EXAM: Chest Single View HISTORY: Cough;Dyspnea COMPARISON: 06/04/2022 FINDINGS: LUNGS/PLEURA: Surgical changes from left lobectomy with similar volume loss. Worsening aeration of th e left lung compared with 06/04/2022. The right lung remains clear. A left pleural effusion is difficult to exclude. MEDIASTINUM: Obscured by mediastinal shift. CARDIAC: Obscured by mediastinal shift. UPPER ABDOMEN: No significant abnormality. BONES: No acute fracture. LINES/TUBES/OTHER: N/A IMPRESSION: Worsened aeration in the left lung compared with 06/04/2022. Without interval imaging for comparison, this could reflect a variety of etiologies including acute pneumonia with or without a left-sided effusion. If better characterization required, suggest chest CT.
[2024-01-29 12:58] LABS: SARS-CoV-2 Antigen CONTROL BLUE LINE VIS/BG OK; SARS-CoV-2 Antigen Rapid Res Negative (Negative)
[2024-01-29 13:37] LABS: Absolute Lymphocytes (CBC) 0.7 K/uL (0.7-4.9); Absolute Monocytes 0.6 K/uL (0.1-1.3); Absolute Neutrophil 10.1 K/uL (1.8-8.0); Basophils % 0.2 % (0-1.3); Eosinophils % 0.2 % (0-4.4); Hematocrit 46.8 % (39.6-49.0); Hemoglobin 15.1 g/dL (13.6-17.9); MCH 30.2 pg (27.0-35.0); MCHC 32.2 g/dL (32.0-36.0); MCV 93.8 fL (80-100); MPV 7.9 fL (7.6-11.3); Monocytes % 5.3 % (3.3-12.3); Neutrophils % 88.3 % (41.7-73.7); Platelets 248 thou/uL (152-406); RBC Red Blood Cell Count 4.99 M/uL (4.33-5.43)
[2024-01-29 13:41] LABS: PT Prothrombin Time 11.8 SECONDS (9.4-12.5); PTT, Activated Partial Thromb 33.6 SECONDS (24.3-36.9); Protime INR 1.06
[2024-01-29 13:48] LABS: Albumin 3.7 g/dL (3.4-5.0); Albumin/Globulin Ratio 0.8 (1.1-1.8); Anion Gap 7.9 mEq/L (5.0-15.0); Bilirubin Total 0.6 mg/dL (0.2-1.0); Globulin 4.4 g/dL (2.3-3.5); Potassium 3.9 mEq/L (3.5-5.1); Protein, Total 8.1 g/dL (6.4-8.2)
[2024-01-29] MEDS ORDERED: NA CHLORIDE 0.9% 250 ML ONE (14:21)
[2024-01-29] MEDS ORDERED: AZITHROMYCIN 500 MG INJ IVPB ONE (14:21)
[2024-01-29] MEDS ORDERED: CEFTRIAXONE 1000 MG/VIAL ONE (14:21)
--- NOTE | 2024-01-29 14:33 | RAD REPORT ---
Thorax W/ Con CLINICAL INDICATION: Male, 68 years old. Dyspnea;Cough TECHNIQUE: Routine CT scan of the chest with intravenous contrast. One or more of the following dose reduction techniques were used: Automated exposure control, adjustment of the mA and/or kV according to patient size, and/or iterative reconstruction. Unless otherwise specified, incidental fi ndings do not require dedicated imaging follow-up. [id number]. COMPARISON: Chest CT 01/24/2022, same-day chest radiograph FINDINGS: LOWER NECK: Visualized thyroid gland and soft tissues are normal. LUNGS AND AIRWAYS: Masslike consolidation in the right middle lobe measuring 2.7 x 2.5 cm. Surgical c hanges from left lower lobectomy. Probable chronic changes which could reflect previous radiation treatment in the left lung. PLEURA: No pleural effusion. No pneumothorax. Hemidiaphragms are normally positioned. MEDIASTINUM AND LYMPH NODES: Mildly enlarged peritracheal lymph node measuring 8 mm. There is also a mildly enlarged prevascular lymph node measuring 8 mm. Fluid is present within the esophagus. THORACIC AORTA: Ascending thoracic aortic aneurysm measuring 4.6 cm. PULMONARY ARTERIES: Normal caliber. HEART: Normal heart size. No coronary calcifications.No pericardial effusion. OSSEOUS STRUCTURES AND CHEST WALL: Intact. UPPER ABDOMEN: No significant abnormalities. IMPRESSION: 1. Masslike consolidation in the right middle lobe probably represents pneumonia given the surroundi ng groundglass opacities but short-term follow-up imaging with chest CT is recommended. This area is not well appreciated on radiograph given the volume of buffered mediastinal shift from the patient 's left lower lobectomy. 2. Mildly enlarged mediastinal lymph nodes. These are nonspecific. Recommend attention on follow-up. 3. Ascending thoracic aortic aneurysm measuring up to 4.4 cm and is unchanged since 01/24/2022.
--- NOTE | 2024-01-29 14:55 | EDPHYS ---
Physician Documentation [facility] Name: Nicolas Rojas Age: 68 yrs Sex: Male : 1955 Arrival Date: 01/29/2024 Time: 11:44 Bed 18 Private MD: ED Physician Xiang Kumari HPI: 01/28 13:05 This 68 yrs old Male presents to ER via Ambulatory with complaints of Cough. rn 13:05 The patient or guardian reports cough. Onset: The symptoms/episode began/occurred 2 rn day(s) ago. Severity of symptoms: At their worst the symptoms were mild, in the emergency department the symptoms are unchanged. Modifying factors: The symptoms are alleviated by nothing, the symptoms are aggravated by nothing. The patient has experienced similar episodes in the past. Patient reports cough, productive of green sputum for 2 days, associated with mild shortness of breath. Has had pneumonia several times in the past and this feels similar. Reports chills.. Historical: - Allergies: 11:58 No Known Allergies; kc6 - PMHx: 11:58 COPD; CAD; familial hypoalphalipoproteinemia; Hyperlipidemia; Hypertension; kc6 Hypothyroidism; Myocardial infarction; Pneumonia; lung cancer; - PSHx: 11:58 left lower lobectomy; Appendectomy; kc6 - Immunization history:: Adult Immunizations up to date. - Infectious Disease History:: Denies. - Social history:: Smoking status: Patient denies any tobacco usage or history of. - Family history:: not pertinent. - Hospitalizations: : No recent hospitalization is reported. 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 ENT: No stridor Cardiovascular: Regular rate and rhythm. No pulse deficits. Respiratory: No increased work of breathing, no retractions or nasal flaring. Abdomen/GI: Soft, non-tender MS/ Extremity: Pulses equal, no cyanosis. Neuro: Awake and alert, GCS 15 Vital Signs: 11:57 BP 133 / 88; Pulse 75; Resp 17 S; Temp 97.8(O); Pulse Ox 98% on R/A; Weight 86.18 kg kc6 (R); Height 6 ft. 1 in. ; 15:36 BP 142 / 89; Pulse 63; Resp 16; Pulse Ox 98% on R/A; jb4 11:57 Body Mass Index 25.07 (86.18 kg, 185.42 cm) kc6 MDM: 11:51 Medical Screening Exam initiated rn 14:53 Differential Diagnosis: Bronchitis Influenza Upper Respiratory Infection Viral Syndrome rn Pneumonia. Data reviewed: vital signs, nurses notes, lab test result(s), radiologic studies, CT scan, plain films, and as a result, I will admit patient. Consideration of Admission/Observation Patient was admitted/placed on observation. Escalation of care including admission/observation considered. Care significantly affected by the following chronic conditions: Chronic Obstructive Pulmonary Disease. Counseling: I had a detailed discussion with the patient and/or guardian regarding the historical points, exam findings, and any diagnostic results supporting the discharge/admit diagnosis, lab results, radiology results, the need for further work-up and treatment in the hospital. 01/28 12:03 Order name: Flu; Complete Time: 13:59 rn 01/28 12:03 Order name: SARS RAPID; Complete Time: 13:59 rn 01/28 12:39 Order name: Blood Culture Adult (2) rn 01/28 12:39 Order name: CBC with Diff; Complete Time: 13:59 rn 01/28 12:39 Order name: CMP; Complete Time: 13:59 rn 07 12:39 Order name: Lactate w/ 2H reflex if indic.; Complete Time: 13:59 rn 01/28 12:39 Order name: Protime (+inr); Complete Time: 13:59 rn 01/28 12:39 Order name: Ptt, Activated; Complete Time: 13:59 rn 07 14:06 Order name: Ghost Lactate-NO COLLECT Timer EDPR 01/28 11:58 Order name: XRAY Chest (1 view); Complete Time: 12:37 rn 01/28 12:39 Order name: CT Chest W/ Con; Complete Time: 14:36 rn 01/28 12:39 Order name: Accucheck; Complete Time: 13:56 rn 01/28 12:39 Order name: Cardiac monitoring; Complete Time: 13:56 rn 01/28 12:39 Order name: EKG - Nurse/Tech; Complete Time: 13:56 rn 01/28 12:39 Order name: IV Saline Lock - Large Bore; Complete Time: 13:30 rn 01/28 12:39 Order name: Labs collected and sent; Complete Time: 13:30 rn 01/28 12:39 Order name: O2 Per Protocol; Complete Time: 13:30 rn 01/28 12:39 Order name: O2 Sat Monitoring; Complete Time: 13:30 rn 01/28 12:39 Order name: Vital Signs; Complete Time: 13:30 rn Administered Medications: 14:37 Drug: Rocephin IV 1 grams IV at calculated rate once; Given slow IV push per pharmacy jb4 instructions Route: IV; Rate: calculated rate; Site: right forearm; 14:37 Drug: Zithromax IVPB 500 mg IVPB once over 1 hrs; mix in 250 mL NS Route: IVPB; Infused jb4 Over: 1 hrs; Site: right forearm; Disposition Summary: 01/29/24 14:54 Hospitalization Ordered Notes: Hospitalization Status: Inpatient Admission rn Provider: Cecilio Kumari [facility]n [facility]n Condition: Stable rn Problem: new rn Symptoms: have improved rn Bed/Room Type: Standard rn Room Assignment: 205(01/29/24 15:27) hb Diagnosis - Pneumonia, unspecified organism rn Forms: - Medication Reconciliation Form rn - SBAR form rn - Leadership Thank You Letter rn Signatures: Dispatcher [employer] EDXiang Monterroso MD MD rn Baxter, Heather, RN RN Tomás Trimble RN RN jb4 Maira Arguellse RN RN kc6 Corrections: (The following items were deleted from the chart) 11:58 11:58 PMHx: carcinoma; kc6 kc6 12:40 12:40 BLOOD CULTURE*+BA.LAB.BRZ ordered. EDMS EDMS 12:40 12:40 CBC+H.LAB.BRZ ordered. EDMS EDMS 12:40 12:40 COMPREHENSIVE METABOLIC PANEL+C.LAB.BRZ ordered. EDMS EDMS 12:40 12:40 LACTATE+C.LAB.BRZ ordered. EDMS EDMS 12:40 12:40 PROTIME (+INR)+COAG.LAB.BRZ ordered. EDMS EDMS 12:40 12:40 PTT, ACTIVATED+COAG.LAB.BRZ ordered. EDMS EDMS 15:27 14:54 rn hb
--- NOTE | 2024-01-29 14:55 | ER ---
Nurse's Notes [facility] Name: Nicolas Rojas Age: 68 yrs Sex: Male : 1955 Arrival Date: 01/29/2024 Time: 11:44 Bed 18 Private MD: Diagnosis: Pneumonia, unspecified organism Presentation: 01/28 11:57 Chief complaint: Patient states: productive cough x2 days with trouble beathing. [facility] Coronavirus screen: At this time, the client does not indicate any symptoms associated with coronavirus-19. Ebola Screen: No symptoms or risks identified at this time. Initial Sepsis Screen: Does the patient meet any 2 criteria? No. Patient's initial sepsis screen is negative. Does the patient have a suspected source of infection? No. Patient's initial sepsis screen is negative. Risk Assessment: Do you want to hurt yourself or someone else? Patient reports no desire to harm self or others. Onset of symptoms was January 27, 2024. 11:57 Method Of Arrival: Ambulatory [facility] 11:57 Acuity: BEBE 3 kc6 Historical: - Allergies: 11:58 No Known Allergies; kc6 - PMHx: 11:58 COPD; CAD; familial hypoalphalipoproteinemia; Hyperlipidemia; Hypertension; kc6 Hypothyroidism; Myocardial infarction; Pneumonia; lung cancer; - PSHx: 11:58 left lower lobectomy; Appendectomy; kc6 - Immunization history:: Adult Immunizations up to date. - Infectious Disease History:: Denies. - Social history:: Smoking status: Patient denies any tobacco usage or history of. - Family history:: not pertinent. - Hospitalizations: : No recent hospitalization is reported. Assessment: 12:32 General: Appears in no apparent distress. comfortable, Behavior is calm, cooperative, jb4 appropriate for age. Pain: Denies pain. Neuro: Level of Consciousness is awake, alert, obeys commands, Oriented to person, place, time, situation. Cardiovascular: Patient's skin is warm and dry. Respiratory: Reports cough that is productive, persistent Airway is patent Respiratory effort is even, unlabored, Respiratory pattern is regular, symmetrical. Derm: Skin is intact, Skin is pink, warm \T\ dry. Musculoskeletal: Circulation, motion, and sensation intact. Range of motion: intact in all extremities. 14:00 Reassessment: Patient appears in no apparent distress at this time. Patient and/or jb4 family updated on plan of care and expected duration. Pain level reassessed. Patient is alert, oriented x 3, equal unlabored respirations, skin warm/dry/pink. 15:36 Reassessment: Patient appears in no apparent distress at this time. Patient and/or jb4 family updated on plan of care and expected duration. Pain level reassessed. Patient is alert, oriented x 3, equal unlabored respirations, skin warm/dry/pink. Vital Signs: 11:57 BP 133 / 88; Pulse 75; Resp 17 S; Temp 97.8(O); Pulse Ox 98% on R/A; Weight 86.18 kg kc6 (R); Height 6 ft. 1 in. ; 15:36 BP 142 / 89; Pulse 63; Resp 16; Pulse Ox 98% on R/A; jb4 11:57 Body Mass Index 25.07 (86.18 kg, 185.42 cm) kc6 ED Course: 11:47 Patient arrived in ED. mg5 11:51 Xiang Kumari MD is Attending Physician. rn 11:57 Triage completed. kc6 11:58 Arm band placed on. kc6 12:10 Tomás Patino, RN is Primary Nurse. jb4 12:19 XRAY Chest (1 view) In Process Unspecified. EDMS 12:19 Flu Sent. jb4 12:19 SARS RAPID Sent. jb4 14:06 Inserted saline lock: 20 gauge in right upper arm, using aseptic technique. Blood nh2 collected. Flushed with 10 mL NS. 14:21 CT Chest W/ Con In Process Unspecified. EDMS 14:54 Cecilio Kumari MD is Hospitalizing Provider. rn Administered Medications: 14:37 Drug: Rocephin IV 1 grams IV at calculated rate once; Given slow IV push per pharmacy jb4 instructions Route: IV; Rate: calculated rate; Site: right forearm; 14:37 Drug: Zithromax IVPB 500 mg IVPB once over 1 hrs; mix in 250 mL NS Route: IVPB; Infused jb4 Over: 1 hrs; Site: right forearm; Outcome: 14:54 Decision to Hospitalize by Provider. rn 16:55 Patient left the ED. jb4 Signatures: Dispatcher [employer] EDMS Xiang Kumari MD MD rn Bryson, James, RN RN jb4 Maira Arguelles RN RN kc6 Melita Clark 5 Wei , [facility] Corrections: (The following items were deleted from the chart) 1158 11:58 PMHx: carcinoma; kc6 kc6
--- NOTE | 2024-01-29 15:21 | P.HP ---
Certification for Inpatient Patient admitted to: Observation With expected LOS: <2 Midnights Patient will require the following post-hospital care: None Practitioner: I am a practitioner with admitting privileges, knowledge of patient current condition, hospital course, and medical plan of care. Services: Services provided to patient in accordance with Admission requirements found in Title 42 Section 412.3 of the Code of Federal Regulations Patient History Date of Service: 01/29/24 Reason for admission: Pneumonia, COPD exacerbation History of Present Illness: 64-year-old male with history of COPD on chronic steroids, lung cancer status post left lower lobectomy 2021, hypothyroidism, hypertension presents to the emergency department chief complaint of cough, increasing shortness of breath. He reports since he had his lobectomy he had recurrent episodes of pneumonia but has not been in the hospital for last 2 years. The past few days he is notes increased cough, shortness of breath. Patient was evaluated in the ER his labs are significant for mild leukocytosis white blood cell count 11.5 lactic acid 2.[address] chest was performed which showed masslike consolidation in the right middle lobe probably represents pneumonia given the surrounding groundglass opacities but short-term follow-up imaging with CT chest is recommended. Stable ascending thoracic aortic aneurysm 4.4 cm unchanged 2021 Read wishes to admit patient for further management of COPD exacerbation, pneumonia Allergies No Known Allergies Allergy (Verified 05/05/18 02:02) Home Medications: Aspirin Chewable [Aspirin Chewable*] 81 mg PO DAILY 05/05/18 Isosorbide Mononitrate [Isosorbide Mononitrate ER] 30 mg PO DAILY 05/05/18 Metoprolol Tartrate [Lopressor*] 25 mg PO BID 05/05/18 Nitroglycerin 0.4 mg SL PRN 05/05/18 Levothyroxine [Synthroid*] 1 tab PO DAILY 01/25/22 Pantoprazole [Protonix Tab*] 40 mg PO DAILY 01/25/22 Albuterol Neb [Proventil 0.083% Neb Soln] 2.5 mg NEB [id number] #60 amp 01/26/22 Ipratropium Neb [Atrovent*] 0.5 mg NEB [id number] #60 amp 01/26/22 levoFLOXacin [Levaquin*] 750 mg PO DAILY #7 tab 01/26/22 predniSONE [Prednisone*] 20 mg PO BID #20 tab 01/26/22 - Past Medical/Surgical History Diabetic: No -: CAD -: COPD -: HYPERLIPIDEMIA -: GERD -: BENIGN ESSENTIAL HYPERTENSION -: CHRONIC KRIS PAIN -: 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 -: PERIPHERAL NERVE DISEASE -: HYPOTHYROIDISM -: FAMILIAL HYPOALPHALIPOPROTEINEMIA -: Cardiac catheterization -: Skin excisional biopsy Psychosocial/ Personal History: Lives at home with his - Family History Father -: Cancer Mother -: Cancer - Social History Smoking Status: Never smoker Alcohol use: Yes CD- Drugs: No Caffeine use: Yes Place of Residence: Home Review of Systems 10-point ROS is otherwise unremarkable Respiratory: Cough, Shortness of Breath, Sputum, Wheezing Physical Examination - Physical Exam General: Alert, In no apparent distress, Oriented x3 HEENT: Atraumatic, PERRLA, Mucous membr. moist/pink Neck: Supple, 2+ carotid pulse no bruit, No LAD, Without JVD or thyroid abnormality Respiratory: Diminished, Expiratory wheezes Cardiovascular: Regular rate/rhythm, Normal S1 S2 Gastrointestinal: Normal bowel sounds, No tenderness Musculoskeletal: No tenderness Integumentary: No rashes Neurological: Normal gait, Normal speech, Normal strength at 5/5 x4 extr, Normal tone, Normal affect Lymphatics: No axilla or inguinal lymphadenopathy - Studies Laboratory Data (last 24 hrs) 01/29/24 01/29/24 01/29/24 13:09 13:09 13:09 WBC 11.50 H Hgb 15.1 Hct 46.8 Plt Count 248 PT 11.8 INR 1.06 APTT 33.6 Sodium 137 Potassium 3.9 BUN 11 Creatinine 1.01 Glucose 115 H Total Bilirubin 0.6 AST 12 L ALT 19 Alkaline Phosphatase 97 Microbiology Data (last 24 hrs): 01/29/24 12:15 Nasopharnyx Influenza Type A Antigen Screen - Final 01/29/24 12:15 Nasopharnyx Influenza Type B Antigen Screen - Final Assessment and Plan - Plan Assessment: Right-sided pneumonia COPD on chronic steroids with exacerbation History of lung cancer with previous left lower lobectomy 2021 Hypothyroidism Hypertension Known 4.4 cm thoracic aortic aneurysm-stable from 2021 Plan: Right-sided pneumonia COPD on chronic steroids with exacerbation History of lung cancer with previous left lower lobectomy 2021 Continue IV antibioticsLevaquin Pulmonology be consulted Takes prednisone 10 mg daily at home, increased to 20 g twice daily for now Continue inhalers, as needed nebulizer treatments Antitussives as necessary CT recommend short-term follow-up after resolution-this was discussed with patient Patient was provided with copy of CT report Hypothyroidism Hypertension Continue home medications when verified Known 4.4 cm thoracic aortic aneurysm-stable from 2021 Stable, continue outpatient monitoring DVT PPX: Lovenox Code status: Full Discharge Plan: Home Plan to discharge in: 24 Hours - Advance Directives Does patient have a Living Will: No Does patient have a Durable POA for Healthcare: Yes - Code Status/Comfort Care Code Status Assessed: Yes (Full code) Critical Care: No Time Spent Managing Pts Care (In Minutes): 58
[2024-01-29] MEDS ORDERED: ACETAMINOPHEN 325 MG TABLET PO PRN (17:51)
[2024-01-29] MEDS ORDERED: BENZONATATE 100 MG CAP PO PRN (17:51)
[2024-01-29 18:29] VITALS: BMI 25.0
[2024-01-29] MEDS: HYDRALAZINE HCL 20 MG/ML VIAL IV PRN (18:49)
[2024-01-29] MEDS: Levofloxacin 750mg IV 750 MG/150 ML BAG IV SCH (19:00)
[2024-01-29] MEDS ORDERED: HYDRALAZINE HCL 20 MG/ML VIAL IV PRN (21:07)
[2024-01-29] MEDS: predniSONE 20 MG TAB PO SCH (22:10)
[2024-01-29 23:31] VITALS: O2SAT 96
[2024-01-30 05:15] LABS: Absolute Basophils 0.1 K/uL (0-0.5); Absolute Lymphocytes (CBC) 0.8 K/uL (0.7-4.9); Absolute Monocytes 0.4 K/uL (0.1-1.3); Absolute Neutrophil 8.7 K/uL (1.8-8.0); Basophils % 0.6 % (0-1.3); Eosinophils % 0.2 % (0-4.4); Hematocrit 40.9 % (39.6-49.0); Hemoglobin 13.9 g/dL (13.6-17.9); Lymphocytes % 8.2 % (15.3-44.8); MCH 31.3 pg (27.0-35.0); MCV 92.3 fL (80-100); MPV 7.6 fL (7.6-11.3); Monocytes % 4.4 % (3.3-12.3); Neutrophils % 86.6 % (41.7-73.7); Nucleated Red Blood Cells % 0.1 % (0-0); Platelets 252 thou/uL (152-406); RBC Red Blood Cell Count 4.44 M/uL (4.33-5.43)
[2024-01-30 05:34] LABS: Anion Gap 6.9 mEq/L (5.0-15.0); Potassium 4.9 mEq/L (3.5-5.1)
[2024-01-30 05:36] LABS: Platelet Estimate ADEQ; White Blood Cell Scan OK (OK)
[2024-01-30 05:37] LABS: Blood Morphology Comment NOT SEEN (NOT SEEN)
[2024-01-30] MEDS: PANTOPRAZOLE 40MG TABLET PO SCH (07:41)
[2024-01-30] MEDS ORDERED: LEVOTHYROXINE SOD 0.075 MG TAB PO SCH (09:00)
[2024-01-30] MEDS ORDERED: PANTOPRAZOLE 40MG TABLET PO SCH (09:00)
--- NOTE | 2024-01-30 10:08 | P.PN ---
Date of Service: 01/30/24 Subjective: No acute events overnight Tolerating room air today Still feeling a bit short of breath ROS: 10 point ROS as noted above, otherwise negative Physical exam GEN: Alert, oriented, NAD HEENT: Normal conjunctiva, sclera anicteric CV: Regular rate and rhythm, no edema Pulm: Nonlabored respirations on room air, diminished with slight expiratory wheezing ABD: Soft, nontender, nondistended MSK: No joint tenderness Integumentary: No rashes Neuro: Normal speech, normal affect Vitals reviewed Assessment: Right-sided pneumonia COPD on chronic steroids with exacerbation History of lung cancer with previous left lower lobectomy 2021 Hypothyroidism Hypertension Known 4.4 cm thoracic aortic aneurysm-stable from 2021 Plan: Right-sided pneumonia COPD on chronic steroids with exacerbation History of lung cancer with previous left lower lobectomy 2021 Continue IV antibioticsLevaquin Pulmonology be consulted-will see patient today Takes prednisone 10 mg daily at home, increased to 20mg twice daily for now Continue inhalers, as needed nebulizer treatments Antitussives as necessary CT recommend short-term follow-up after resolution-this was discussed with patient Patient was provided with copy of CT report Hypothyroidism Hypertension Home medications continued Known 4.4 cm thoracic aortic aneurysm-stable from 2021 Stable, continue outpatient monitoring DVT PPX: Lovenox Code status: Full Discharge Plan: Home Plan to discharge in: 24 Hours Time Spent Managing Pts Care (In Minutes): 35
--- NOTE | 2024-01-30 10:20 | P.CNS ---
Date of Consult: 01/30/24 Reason for Consult: Abnormal CT scan Chief Complaint: Pneumonia, COPD exacerbation History of Present Illness: Patient is 68 years of age admitted with your coughing spells productive green phlegm worse for the past 2 days more short of breath his throat seem to be hurting him to have an opacity in the right middle lobe denies any fever or chills Allergies No Known Allergies Allergy (Verified 05/05/18 02:02) Home Medications: Levothyroxine [Synthroid*] 0.112 mcg PO DAILY 01/25/22 Albuterol Neb [Proventil 0.083% Neb Soln] 2.5 mg NEB [id number] #60 amp 01/26/22 Ipratropium Neb [Atrovent*] 0.5 mg NEB [id number] #60 amp 01/26/22 Fluticasone Propion/Salmeterol [Wixela 250-50 Inhub] 250 PO DAILY 01/29/24 Losartan Potassium 50 mg PO DAILY 01/29/24 Pantoprazole [Protonix Tab*] 40 mg PO DAILY 01/29/24 predniSONE [Prednisone*] 10 mg PO DAILY 01/29/24 - Past Medical/Surgical History Diabetic: No -: CAD -: COPD -: HYPERLIPIDEMIA -: GERD -: BENIGN ESSENTIAL HYPERTENSION -: CHRONIC KRIS PAIN -: 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 -: PERIPHERAL NERVE DISEASE -: HYPOTHYROIDISM -: FAMILIAL HYPOALPHALIPOPROTEINEMIA -: History of lung cancer -: Cardiac catheterization -: Skin excisional biopsy -: Lower lobe lobectomy, appendectomy Psychosocial/ Personal History: Lives at home with his - Family History Father Medical History: Cancer Mother Medical History: Cancer - Social History Alcohol use: Yes CD- Drugs: No Caffeine use: Yes Place of Residence: Home Review of Systems 10-point ROS is otherwise unremarkable General: Weakness Respiratory: Cough, Shortness of Breath Physical Examination Temp Pulse Resp BP Pulse Ox 97.6 F 68 16 159/93 H 97 01/30/24 08:00 01/30/24 08:00 01/30/24 08:00 01/30/24 08:00 01/30/24 08:00 General: Alert, Oriented x3 Respiratory: Clear to auscultation bilaterally, Diminished (Initially on the left side) Cardiovascular: No edema, Regular rate/rhythm Gastrointestinal: Normal bowel sounds, Soft and benign Laboratory Data (last 24 hrs) 01/29/24 01/29/24 01/29/24 13:09 13:09 13:09 WBC 11.50 H Hgb 15.1 Hct 46.8 Plt Count 248 PT 11.8 INR 1.06 APTT 33.6 Sodium 137 Potassium 3.9 BUN 11 Creatinine 1.01 Glucose 115 H Total Bilirubin 0.6 AST 12 L ALT 19 Alkaline Phosphatase 97 - Problems (1) Pneumonia Current Visit: No Status: Acute Plan: Patient is 68 years of age admitted with acute cough shortness of breath has new right middle lobe opacity and underlying pneumonia some volume loss in the left side from prior lobectomy labs chemistries reviewed white count is normal he does take low-dose prednisone at home has a history of underlying presumed COPD continue with bronchodilators belt changer to p.o. antibiotics possible discharge in the morning to follow-up with me in 2 to 4 weeks will need a follow-up CT scan signs oxygenation satisfactory possible discharge tomorrow increase prednisone to 10 mg twice a day the patient to continue with his inhalers and can go home on levofloxacin for a week Qualifiers: Aspiration pneumonia type: unspecified Laterality: unspecified laterality
[2024-01-30] MEDS: ARFORMOTEROL TARTRATE 15 MCG/2 ML VIAL.NEB NEB SCH (10:24)
[2024-01-30] MEDS: DULERA 200/5 (MOMETASONE/FORMOTEROL) INHALER IH SCH (10:33)
[2024-01-30] MEDS: ENOXAPARIN 40 MG/0.4 ML SQ SCH (10:34)
[2024-01-30] MEDS: LOSARTAN POTASSIUM 50 MG TABLET PO SCH (10:35)
[2024-01-30] MEDS: IPRATROPIUM BROM 0.5MG/2.5ML NEB PRN (14:05)
[2024-01-30] MEDS: ALBUTEROL 2.5 MG/3 ML NEB SOL NEB PRN (14:05)
[2024-01-31 05:29] LABS: Absolute Basophils 0.1 K/uL (0-0.5); Absolute Lymphocytes (CBC) 0.9 K/uL (0.7-4.9); Absolute Monocytes 0.5 K/uL (0.1-1.3); Absolute Neutrophil 9.4 K/uL (1.8-8.0); Basophils % 0.6 % (0-1.3); Eosinophils % 0.1 % (0-4.4); Hematocrit 43.1 % (39.6-49.0); Hemoglobin 14.4 g/dL (13.6-17.9); Lymphocytes % 8.2 % (15.3-44.8); MCH 31.2 pg (27.0-35.0); MCHC 33.4 g/dL (32.0-36.0); MCV 93.4 fL (80-100); MPV 7.8 fL (7.6-11.3); Monocytes % 4.8 % (3.3-12.3); Platelets 295 thou/uL (152-406); RBC Red Blood Cell Count 4.62 M/uL (4.33-5.43)
[2024-01-31 05:31] LABS: Neutrophils % 86.3 % (41.7-73.7)
[2024-01-31 05:50] LABS: Anion Gap 8.1 mEq/L (5.0-15.0); Potassium 5.1 mEq/L (3.5-5.1)
[2024-01-31] MEDS: LEVOTHYROXINE SOD 0.112 MG TAB PO SCH (06:31)
[2024-01-31 08:24] VITALS: BP 98/52; TEMP 98.6
[2024-01-31] MEDS ORDERED: levoFLOXacin 750 MG TAB PO SCH (09:00)
--- NOTE | 2024-01-31 10:37 | P.DS ---
Admission Date: 01/30/24 Discharge Date: 01/31/24 Disposition: ROUTINE DISCHARGE Discharge Condition: GOOD Reason for Admission: Pneumonia, COPD exacerbation Brief History of Present Illness: 64-year-old male with history of COPD on chronic steroids, lung cancer status post left lower lobectomy 2021, hypothyroidism, hypertension presents to the emergency department chief complaint of cough, increasing shortness of breath. He reports since he had his lobectomy he had recurrent episodes of pneumonia but has not been in the hospital for last 2 years. The past few days he is notes increased cough, shortness of breath. Patient was evaluated in the ER his labs are significant for mild leukocytosis white blood cell count 11.5 lactic acid 2.[address] chest was performed which showed masslike consolidation in the right middle lobe probably represents pneumonia given the surrounding groundglass opacities but short-term follow-up imaging with CT chest is recommended. Stable ascending thoracic aortic aneurysm 4.4 cm unchanged 2021 Read wishes to admit patient for further management of COPD exacerbation, pneumonia Hospital Course: Assessment: Right-sided pneumonia COPD on chronic steroids with exacerbation History of lung cancer with previous left lower lobectomy 2021 Hypothyroidism Hypertension Known 4.4 cm thoracic aortic aneurysm-stable from 2021 Patient was admitted to hospital for COPD exacerbation, right-sided pneumonia. Patient doses chronic steroids, levofloxacin. He has been tolerating room air, he was seen by pulmonology Dr. English and stable for discharge with outpatient follow-up. CT scan of the chest showed masslike consolidation in the right middle lobe probably representing pneumonia given surrounding groundglass opacities but short-term follow-up imaging with chest CT is recommended. Patient and Dr. English aware, will need to follow-up with Dr. English in the office in the next 2 to 4 weeks to arrange for repeat imaging. Additionally noted mildly enlarged mediastinal lymph nodes which should also be followed up on the CT scan. Stable thoracic aortic aneurysm measuring 4.4 cm unchanged from 2021 Continue home medications as previously prescribed Prescription for Levaquin 750 mg once daily for 1 week sent to pharmacy Prednsione will be increased to 10 mg twice daily for 1 week, after completing this resume your 10 mg once daily dose Vital Signs/Physical Exam: Temp Pulse Resp BP Pulse Ox 98.6 F 140 H 12 98/52 L 96 01/31/24 08:00 01/31/24 08:00 01/31/24 08:00 01/31/24 08:00 01/31/24 08:00 General: Alert, In no apparent distress, Oriented x3 HEENT: Atraumatic, PERRLA Neck: Supple, JVD not distended Respiratory: Clear to auscultation bilaterally, Normal air movement Cardiovascular: Regular rate/rhythm, Normal S1 S2 Gastrointestinal: Normal bowel sounds, No tenderness Musculoskeletal: No tenderness Integumentary: No rashes Neurological: Normal speech, Normal tone, Normal affect Laboratory Data at Discharge: WBC 10.90 thou/uL (4.3-10.9) 01/31/24 04:59 Hgb 14.4 g/dL (13.6-17.9) 01/31/24 04:59 Hct 43.1 % (39.6-49.0) 01/31/24 04:59 Plt Count 295 thou/uL (152-406) 01/31/24 04:59 PT 11.8 SECONDS (9.4-12.5) 01/29/24 13:09 INR 1.06 01/29/24 13:09 APTT 33.6 SECONDS (24.3-36.9) 01/29/24 13:09 Sodium 138 mEq/L (136-145) 01/31/24 04:59 Potassium 5.1 mEq/L (3.5-5.1) 01/31/24 04:59 BUN 13 mg/dL (7-18) 01/31/24 04:59 Creatinine 1.01 mg/dL (0.70-1.30) 01/31/24 04:59 Glucose 150 mg/dL (74-106) H 01/31/24 04:59 Total Bilirubin 0.6 mg/dL (0.2-1.0) 01/29/24 13:09 AST 12 U/L (15-37) L 01/29/24 13:09 ALT 19 U/L (16-61) 01/29/24 13:09 Alkaline Phosphatase 97 U/L (45-117) 01/29/24 13:09 Home Medications: Levothyroxine [Synthroid*] 0.112 mcg PO DAILY 01/25/22 Albuterol Neb [Proventil 0.083% Neb Soln] 2.5 mg NEB [id number] #60 amp 01/26/22 Ipratropium Neb [Atrovent*] 0.5 mg NEB [id number] #60 amp 01/26/22 Fluticasone Propion/Salmeterol [Wixela 250-50 Inhub] 250 PO DAILY 01/29/24 Losartan Potassium 50 mg PO DAILY 01/29/24 Pantoprazole [Protonix Tab*] 40 mg PO DAILY 01/29/24 predniSONE [Prednisone*] 10 mg PO DAILY 01/29/24 levoFLOXacin [Levaquin*] 750 mg PO DAILY 7 Days #7 tab 01/31/24 predniSONE [Deltasone*] 10 mg PO BID 7 Days #14 tab 01/31/24 New Medications: predniSONE [Deltasone*] 10 mg PO BID 7 Days #14 tab levoFLOXacin [Levaquin*] 750 mg PO DAILY 7 Days #7 tab Physician Discharge Instructions: Patient was admitted to hospital for COPD exacerbation, right-sided pneumonia. Patient doses chronic steroids, levofloxacin. He has been tolerating room air, he was seen by pulmonology Dr. English and stable for discharge with outpatient follow-up. CT scan of the chest showed masslike consolidation in the right middle lobe probably representing pneumonia given surrounding groundglass opacities but short-term follow-up imaging with chest CT is recommended. Patient and Dr. English aware, will need to follow-up with Dr. English in the office in the next 2 to 4 weeks to arrange for repeat imaging. Additionally noted mildly e nlarged mediastinal lymph nodes which should also be followed up on the CT scan. Stable thoracic aortic aneurysm measuring 4.4 cm unchanged from 2021 Continue home medications as previously prescribed Prescription for Levaquin 750 mg once daily for 1 week sent to pharmacy Prednsione will be increased to 10 mg twice daily for 1 week, after completing this resume your 10 mg once daily dose Diet: Regular Activity: Ad polo Followup: Rashad English MD [ACTIVE - CAN ADMIT] - 1-2 Weeks NONE,NONE [Primary Care Provider] - 1 Week Time spent managing pt's care (in minutes): 40
--- NOTE | 2024-02-04 16:12 | EKG ---
Test Date: 2024-01-29 Test Time: 13:50:24 Wardrobe Specialist: MONICA MEASUREMENT RESULTS: Intervals: Rate: 69 KS: 198 QRSD: 102 QT: 430 QTc: 460 [place]: P: 38 KS: 198 QRS: 109 T: 40 INTERPRETIVE STATEMENTS: Normal sinus rhythm Anterolateral infarct, age undetermined Abnormal ECG Compared to ECG 01/24/2022 09:54:10 Ventricular premature complex(es) no longer present First degree AV block no longer present Right-axis deviation no longer present Incomplete right bundle-branch block no longer present Myocardial infarct finding still present Electronically Signed On 02-04-24 15:59:55 FLANGER by Geraldo Leblanc
== END 2024-01-31 09:25 | disposition home or self-care (01) | DRG 190 ==
LOC: ER 11:44 → ERHOLD 15:13 → 2ND 16:29 → OBSVTOIN 01-30 17:18
PROVIDERS: ADMIT Hospitalist; ATTEND Hospitalist
DX: J44.1 Chronic obstructive pulmonary disease with (acute) exacerbation (principal); J18.9 Pneumonia, unspecified organism; J44.0 Chronic obstructive pulmonary disease with (acute) lower respiratory infection; E78.5 Hyperlipidemia, unspecified; I10 Essential (primary) hypertension; E03.9 Hypothyroidism, unspecified; I71.20 Thoracic aortic aneurysm, without rupture, unspecified; K21.9 Gastro-esophageal reflux disease without esophagitis; I25.10 Atherosclerotic heart disease of native coronary artery without angina pectoris; I25.2 Old myocardial infarction; Z90.2 Acquired absence of lung [part of]; Z11.52 Encounter for screening for COVID-19; Z79.82 Long term (current) use of aspirin; Z90.49 Acquired absence of other specified parts of digestive tract; Z79.890 Hormone replacement therapy; Z79.899 Other long term (current) drug therapy
CPT/HCPCS: 36415; 71045; 71260; 80048; 80053; 83605; 85025; 85610; 85730; 87040; 87070; 87205; 87804; 87811; 93005; 96374; 96375; 99284; G0378; J0360; J0696; J1650; J3535; J7050; J7512; J7605; J7613; J7644; Q9967

== ENCOUNTER 2024-02-07 09:18 | Emergency (ER) | payer OTHER ==
[2024-02-07] MEDS ORDERED: LIDOCAINE 2% W/EPI 1:200,000 MPF 20 ML VIAL IM ONE (09:34)
[2024-02-07] MEDS ORDERED: HYDROCODONE/APAP 10/325 TAB ONE (09:34)
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
[2024-02-07 11:11] VITALS: TEMP 97.6
[2024-02-07 11:12] VITALS: BP 151/97; O2SAT 98
== END 2024-02-07 11:04 | disposition home or self-care (01) ==
LOC: ER 09:18
DX: S76.921A Laceration of unspecified muscles, fascia and tendons at thigh level, right thigh, initial encounter (principal)
CPT/HCPCS: 12031; 99283

== ENCOUNTER 2024-02-24 18:22 | Emergency (ER) | payer OTHER ==
[2024-02-24] MEDS ORDERED: IPRATROPIUM BROM 0.5MG/2.5ML ONE (19:50)
[2024-02-24] MEDS ORDERED: ALBUTEROL 2.5 MG/3 ML NEB SOL ONE (19:50)
[2024-02-24 19:54] LABS: Absolute Lymphocytes (CBC) 0.7 K/uL (0.7-4.9); Absolute Monocytes 0.6 K/uL (0.1-1.3); Absolute Neutrophil 4.1 K/uL (1.8-8.0); Basophils % 0.1 % (0-1.3); Eosinophils % 0.1 % (0-4.4); Hematocrit 41.8 % (39.6-49.0); Hemoglobin 14.1 g/dL (13.6-17.9); Lymphocytes % 12.2 % (15.3-44.8); MCH 31.2 pg (27.0-35.0); MCHC 33.8 g/dL (32.0-36.0); MCV 92.2 fL (80-100); MPV 7.4 fL (7.6-11.3); Neutrophils % 76.6 % (41.7-73.7); Nucleated Red Blood Cells % 0.1 % (0-0); Platelets 127 thou/uL (152-406); RBC Red Blood Cell Count 4.53 M/uL (4.33-5.43); Red Cell Distribution Width 14.3 % (12.1-15.2)
[2024-02-24 20:04] LABS: Anion Gap 9.6 mEq/L (5.0-15.0); Potassium 3.6 mEq/L (3.5-5.1)
[2024-02-24 20:14] LABS: SARS-CoV-2 Antigen CONTROL BLUE LINE VIS/BG OK; SARS-CoV-2 Antigen Rapid Res Negative (Negative)
--- NOTE | 2024-02-24 20:44 | RAD REPORT ---
EXAMINATION: TWO VIEW CHEST XR CLINICAL INDICATION: Congestion;Cough TECHNIQUE: 2 views of the chest was performed. COMPARISON: 01/29/2024 FINDINGS: Volume loss of the left hemithorax with airspace opacity present appearing quite similar to the prior study. Moderate shift of cardiomediastinal structures to left is unchanged. The heart is normal in size. No displaced fractures evident. IMPRESSION: No significant change seen since 01/29/2024.
--- NOTE | 2024-02-24 21:40 | RAD REPORT ---
EXAM: CT CHEST WITH CONTRAST CLINICAL INDICATION: DYSPNEA TECHNIQUE: Routine CT scan of the chest with intravenous contrast. One or more of the following dose reduction techniques were used: Automated exposure control, adjustment of the mA and/or kV according to patient size, and/or iterative reconstruction. Unless otherwise specified, incidental fi ndings do not require dedicated imaging follow-up. COMPARISON: 01/29/2024 FINDINGS: LUNGS: Left lung volume loss with bronchiectasis noted left upper lobe, unchanged. Area of lung conso lidation in the left base appears mildly progressive since the comparison study. Ill-defined lingular lesion previously measuring 2.7 cm appears moderately decreased in size. Ill-defined medial right lung base lung opacities present, new since prior study. PLEURA: No pleural effusion. No pneumothorax. MEDIASTINUM AND LYMPH NODES: 13 mm pretracheal lymph node is present. OSSEOUS STRUCTURES AND CHEST WALL: Intact. Mild thoracic dextroscoliosis. UPPER ABDOMEN: No significant abnormalities. IMPRESSION: Airspace consolidation left base as well as medial right base suspicious for pneumonia.
--- NOTE | 2024-02-24 22:52 | EDPHYS ---
Physician Documentation [facility] Name: Nicolas Rojas Age: 68 yrs Sex: Male : 1955 Arrival Date: 02/24/2024 Time: 18:22 Bed 6 Private MD: ED Physician Adonay Davis HPI: 02/24 00:46 This 68 yrs old Male presents to ER via Ambulatory with complaints of Cough, Shortness sb4 Of Breath. 00:46 Patient reports cough, and dyspnea on exertion for a few days now. States that he sb4 checked his vitals at home and noted his oxygen to be in the 70s while ambulating. States that he has been using ipratropium and his nebulizer which has been helping his symptoms but wanted to be evaluated to make sure things did not get any worse. He denies any chest pain. He reports a mild amount of sputum that he is coughing up. He tried to call his manager [employer] but was unavailable today. Historical: - Allergies: 02/23 19:04 No Known Allergies; ap3 - PMHx: 19:04 CAD; COPD; Hyperlipidemia; Hypertension; Hypothyroidism; Lung Cancer; Myocardial ap3 infarction; Pneumonia; - Immunization history:: Client reports having NOT received the Covid vaccine. Flu vaccine is not up to date. - Infectious Disease History:: Denies. - Social history:: Smoking status: Patient denies any tobacco usage or history of. ROS: 02/24 00:46 Constitutional: Negative for fever, chills, and weight loss, sb4 Respiratory: Positive for cough, dyspnea on exertion, All other systems are negative, Exam: 00:58 Constitutional: This is a well developed, well nourished patient who is awake, alert, sb4 and in no acute distress. Head/Face: Normocephalic, atraumatic. Eyes: Extra-ocular motions intact. Periorbital areas with no swelling, redness, or edema. ENT: Mucous membranes moist. Cardiovascular: Regular rate and rhythm with a normal S1 and S2. Abdomen/GI: Soft, non-tender, no distension. Skin: Warm, dry with normal turgor. Normal color with no rashes, no lesions, and no evidence of cellulitis. 00:58 Respiratory: the patient does not display signs of respiratory distress, Respirations: normal, Breath sounds: rhonchi, that are moderate, are located in both bases, Vital Signs: 02/23 19:03 BP 156 / 90; Pulse 86; Resp 21; Temp 98.3; Pulse Ox 94% on R/A; Weight 88.45 kg; Height ap3 6 ft. 1 in. ; 20:00 BP 135 / 87; Pulse 76; Resp 19; Pulse Ox 98% on R/A; dd2 21:00 BP 104 / 70; Pulse 83; Resp 20; Pulse Ox 97% on R/A; dd2 22:49 BP 125 / 82; Pulse 89; Resp 19; Pulse Ox 94% on R/A; dd2 19:03 Body Mass Index 25.73 (88.45 kg, 185.42 cm) ap3 [place] Coma Score: 19:20 Eye Response: spontaneous(4). Motor Response: obeys commands(6). Verbal Response: dd2 oriented(5). Total: 15. MDM: 19:02 Medical Screening Exam initiated sb4 02/24 00:58 Data reviewed: vital signs, nurses notes, lab test result(s), radiologic studies, and sb4 as a result, I will discharge patient. Consideration of Admission/Observation Escalation of care including admission/observation considered. Counseling: I had a detailed discussion with the patient and/or guardian regarding the historical points, exam findings, and any diagnostic results supporting the discharge/admit diagnosis, lab results, radiology results, the need for outpatient follow up, for definitive care, to return to the emergency department if symptoms worsen or persist or if there are any questions or concerns that arise at home. ED course: Patient is flu positive and chest CT is positive for pneumonia. I did have the RN ambulate the patient while monitoring O2 and it did remain at 93 and above. Patient states that he feels better after receiving the breathing treatment. I will discharge him on p.o. antibiotics with return precautions. He understands. 02/23 19:29 Order name: SARS RAPID; Complete Time: 20:15 sb4 02/23 19:29 Order name: Flu; Complete Time: 20:15 sb4 02/23 19:29 Order name: RSV; Complete Time: 20:22 sb4 02/23 19:29 Order name: CBC with Diff; Complete Time: 20:00 sb4 02/23 19:29 Order name: BMP; Complete Time: 20:07 sb4 02/23 19:29 Order name: Chest Pa And Lat (2 Views) XRAY; Complete Time: 20:47 sb4 02/23 20:48 Order name: Chest W/ Con CT; Complete Time: 21:40 sb4 02/23 19:29 Order name: IV Start; Complete Time: 19:45 sb4 02/23 21:41 Order name: Misc. Order: ambulate with O2 monitor; Complete Time: 22:50 sb4 Administered Medications: 02/23 19:55 Drug: DuoNeb Nebulize (3:1) (2.5 mg - 0.5 mg) 3 ml Nebulizer once Route: Nebulizer; dd2 20:25 Follow up: Response: No adverse reaction dd2 23:11 Drug: LevOfloxacin PO 750 mg PO once Route: PO; dd2 23:11 Follow up: Response: Medication administered at discharge. dd2 Disposition Summary: 02/24/24 22:52 Discharge Ordered Notes: Location: Home sb4 Problem: new sb4 Symptoms: have improved sb4 Condition: Stable sb4 Diagnosis - Pneumonia, unspecified organism sb4 Followup: sb4 - With: Emergency Department - When: As needed - Reason: Trouble breathing, Worsening of condition Discharge Instructions: - Discharge Summary Sheet sb4 - Community-Acquired Pneumonia, Adult sb4 Forms: - Antibiotic Education sb4 - Patient Portal Instructions sb4 - Leadership Thank You Letter sb4 Prescriptions: - Albuterol Sulfate 2.5 mg /3 mL (0.083 %) Inhalation Solution for Nebulization - inhale 1 unit NEBULIZATION route every 8 hours As needed; 20 unit; Refills: 0, sb4 Product Selection Permitted - Prednisone 20 mg Oral Tablet - take 2 tablets ORAL route once daily for 5 days; 10 tablet; Refills: 0, Product sb4 Selection Permitted - levofloxacin 750 mg Oral tablet - take 1 tablet ORAL route once daily; 7 tablet; Refills: 0, Product Selection sb4 Permitted Addendum: 02/29/2024 15:32 Co-signature as Attending Physician, Adonay Davis MD I agree with the assessment and c phelps plan of care. Signatures: Dispatcher [employer] Adonay Elliott MD MD cha Prokisch, Amanda RN RN [email or web address] Saray Whaley, PA-C PA-C sb4 SHERRON LOUISE RN RN dd2 Corrections: (The following items were deleted from the chart) 02/23 19:05 19:04 PMHx: familial hypoalphalipoproteinemia; ap3 ap3 02/24 00:47 00:46 Patient reports cough, and dyspnea on exertion for a few days now. States that he sb4 checked his vitals at home and noted his oxygen to be in the 70s while ambulating. States that he has been using ipratropium and his nebulizer which has been helping his symptoms but wanted to be evaluated to make sure things did not get any worse. He denies any chest pain. He reports a mild amount of sputum that he is coughing up. sb4
--- NOTE | 2024-02-24 22:52 | ER ---
Nurse's Notes [facility] Name: Nicolas Roajs Age: 68 yrs Sex: Male : 1955 Arrival Date: 02/24/2024 Time: 18:22 Bed 6 Private MD: Diagnosis: Pneumonia, unspecified organism Presentation: 02/23 19:03 Chief complaint: Patient states: he has been having increased shortness of breath on ap3 ambulation and a cough for a couple of days. Coronavirus screen: Client presents with at least one sign or symptom that may indicate coronavirus-19. Ebola Screen: No symptoms or risks identified at this time. Initial Sepsis Screen: Does the patient meet any 2 criteria? No. Patient's initial sepsis screen is negative. Does the patient have a suspected source of infection? No. Patient's initial sepsis screen is negative. Risk Assessment: Do you want to hurt yourself or someone else? Patient reports no desire to harm self or others. Onset of symptoms is unknown. 19:03 Method Of Arrival: Ambulatory ap3 19:03 Acuity: BEBE 3 ap3 Triage Assessment: 19:05 General: Appears comfortable, Behavior is calm, cooperative, appropriate for age. Pain: ap3 Denies pain. Neuro: Level of Consciousness is awake, alert, obeys commands, Oriented to person, place, time, situation, Appropriate for age. Cardiovascular: Patient's skin is warm and dry. Respiratory: Reports shortness of breath on exertion cough that is Airway is patent Respiratory effort is even, unlabored, Respiratory pattern is regular, symmetrical, tachypnea Onset: The symptoms/episode began/occurred gradually, the patient has moderate shortness of breath. Historical: - Allergies: 19:04 No Known Allergies; ap3 - PMHx: 19:04 CAD; COPD; Hyperlipidemia; Hypertension; Hypothyroidism; Lung Cancer; Myocardial ap3 infarction; Pneumonia; - Immunization history:: Client reports having NOT received the Covid vaccine. Flu vaccine is not up to date. - Infectious Disease History:: Denies. - Social history:: Smoking status: Patient denies any tobacco usage or history of. Screenin:06 Abuse screen: Denies threats or abuse. Nutritional screening: No deficits noted. ap3 Tuberculosis screening: No symptoms or risk factors identified. 19:20 [facility] ED Fall Risk Assessment (Adult) History of falling in the last 3 months, dd2 including since admission No falls in past 3 months (0 pts) Confusion or Disorientation No (0 pts) Intoxicated or Sedated No (0 pts) Impaired Gait No (0 pts) Mobility Assist Device Used No (0 pt) Altered Elimination No (0 pt) Score/Fall Risk Level 0 - 2 = Low Risk Oriented to surroundings, Maintained a safe environment, Educated pt \T\ family on fall prevention, incl call for assistance when getting out of bed, Assessed \T\ reinforced patient's understanding of fall precautions, Hourly rounding (assess needs \T\ fall precautionary measures) done. Assessment: 19:20 General: Appears in no apparent distress. Behavior is calm, cooperative, appropriate dd2 for age. Pain: Complains of pain in chest Pain does not radiate. Pain currently is 0 out of 10 on a pain scale. at worst was 4 out of 10 on a pain scale. Aggravated by coughing. Neuro: Alonso Agitation-Sedation Scale (RASS): 0 - Alert and Calm Level of Consciousness is awake, alert, obeys commands, Oriented to person, place, time, situation, Appropriate for age. Cardiovascular: Patient's skin is warm and dry. Rhythm is regular. Respiratory: Reports shortness of breath on exertion cough that is dry, persistent Airway is patent Respiratory effort is even, unlabored, Respiratory pattern is regular, symmetrical, Breath sounds are diminished in left lower lobe. GI: No deficits noted. No signs and/or symptoms were reported involving the gastrointestinal system. Abdomen is non-distended. EENT: No deficits noted. No signs and/or symptoms were reported regarding the EENT system. Derm: No deficits noted. No signs and/or symptoms reported regarding the dermatologic system. Musculoskeletal: No deficits noted. No signs and/or symptoms reported regarding the musculoskeletal system. Circulation, motion, and sensation intact. Range of motion: intact in all extremities. Vital Signs: 19:03 BP 156 / 90; Pulse 86; Resp 21; Temp 98.3; Pulse Ox 94% on R/A; Weight 88.45 kg; Height ap3 6 ft. 1 in. ; 20:00 BP 135 / 87; Pulse 76; Resp 19; Pulse Ox 98% on R/A; dd2 21:00 BP 104 / 70; Pulse 83; Resp 20; Pulse Ox 97% on R/A; dd2 22:49 BP 125 / 82; Pulse 89; Resp 19; Pulse Ox 94% on R/A; dd2 19:03 Body Mass Index 25.73 (88.45 kg, 185.42 cm) ap3 Jose Juan Coma Score: 19:20 Eye Response: spontaneous(4). Motor Response: obeys commands(6). Verbal Response: dd2 oriented(5). Total: 15. ED Course: 18:25 Patient arrived in ED. im 18:37 Saray Whaley PA-C is PHCP. sb4 18:37 Adonay Davis MD is Attending Physician. sb4 19:04 Triage completed. ap3 19:05 SHERRON LOUISE, SARAH is Primary Nurse. dd2 19:06 Arm band placed on right wrist. ap3 19:20 Patient has correct armband on for positive identification. Bed in low position. Call dd2 light in reach. Side rails up X 1. Client placed on continuous cardiac and pulse oximetry monitoring. NIBP monitoring applied. Door closed. Noise minimized. Warm blanket given. Pillow given. Verbal reassurance given. 19:20 Patient maintains SpO2 saturation greater than 95% on room air. dd2 19:45 No provider procedures requiring assistance completed. Initial lab(s) drawn, by me, dd2 sent to lab. COVID swab sent to lab. Flu and/or RSV swab sent to lab. Inserted saline lock: 20 gauge in right forearm, using aseptic technique. Blood collected. Flushed with 10 mL NS. 19:46 BMP Sent. dd2 19:46 CBC with Diff Sent. dd2 19:46 RSV Sent. dd2 19:46 Flu Sent. dd2 19:46 SARS RAPID Sent. dd2 20:20 Chest Pa And Lat (2 Views) XRAY In Process Unspecified. EDMS 21:29 Chest W/ Con CT In Process Unspecified. EDMS 23:11 Provided Education on: d/c education. dd2 23:11 IV discontinued, intact, bleeding controlled, No redness/swelling at site. Pressure dd2 dressing applied. Administered Medications: 19:55 Drug: DuoNeb Nebulize (3:1) (2.5 mg - 0.5 mg) 3 ml Nebulizer once Route: Nebulizer; dd2 20:25 Follow up: Response: No adverse reaction dd2 23:11 Drug: LevOfloxacin PO 750 mg PO once Route: PO; dd2 23:11 Follow up: Response: Medication administered at discharge. dd2 Medication: 19:20 VIS not applicable for this client. dd2 Outcome: 22:52 Discharge ordered by . sb4 23:11 Discharged to home ambulatory, dd2 23:11 Condition: stable 23:11 Discharge instructions given to patient, Instructed on discharge instructions, follow up and referral plans. medication usage, Demonstrated understanding of instructions, follow-up care, medications, Prescriptions given X 3, 23:14 Patient left the ED. dd2 Signatures: Dispatcher [employer] EDMT Ana María Gamboa RN RN ap3 Saray Whaley, PA-C PA-C sb4 Angeles Judge DIANA RN RN dd2 Corrections: (The following items were deleted from the chart) 19:05 19:04 PMHx: familial hypoalphalipoproteinemia; ap3 ap3
[2024-02-24] MEDS ORDERED: levoFLOXacin 750 MG TAB ONE (23:02)
[2024-02-25 06:22] VITALS: TEMP 98.3
[2024-02-25 06:25] VITALS: BP 125/82; O2SAT 94
== END 2024-02-24 23:14 | disposition home or self-care (01) ==
LOC: ER 18:22
DX: J18.9 Pneumonia, unspecified organism (principal); Z11.52 Encounter for screening for COVID-19; J44.9 Chronic obstructive pulmonary disease, unspecified; I10 Essential (primary) hypertension; I25.10 Atherosclerotic heart disease of native coronary artery without angina pectoris; E78.5 Hyperlipidemia, unspecified; E03.9 Hypothyroidism, unspecified; I25.2 Old myocardial infarction
CPT/HCPCS: 85025; 80048; 36415; 87807; 87804 ×2; 71260; 71046; 99284; 87811; Q9967; J7613; J7644

== ENCOUNTER 2024-06-20 06:58 | Emergency (ER) | payer OTHER ==
[2024-06-20 07:56] LABS: Absolute Eosinophils 0.2 K/uL (0-0.5); Absolute Lymphocytes (CBC) 0.8 K/uL (0.7-4.9); Absolute Monocytes 0.6 K/uL (0.1-1.3); Absolute Neutrophil 6.3 K/uL (1.8-8.0); Basophils % 0.2 % (0-1.3); Eosinophils % 2.2 % (0-4.4); Hemoglobin 15.2 g/dL (13.6-17.9); Lymphocytes % 10.6 % (15.3-44.8); MCHC 34.5 g/dL (32.0-36.0); MCV 89.9 fL (80-100); MPV 7.8 fL (7.6-11.3); Monocytes % 7.5 % (3.3-12.3); Neutrophils % 79.5 % (41.7-73.7); Nucleated Red Blood Cells % 0.1 % (0-0); Platelets 228 thou/uL (152-406); RBC Red Blood Cell Count 4.89 M/uL (4.33-5.43); Red Cell Distribution Width 13.2 % (12.1-15.2)
--- NOTE | 2024-06-20 08:07 | RAD REPORT ---
Procedure: Chest Single View HISTORY: Cough COMPARISON: February 2024 FINDINGS: Left lobectomy. Haziness of the left hemithorax is without significant change probably representing a combination of atelectasis, bronchiectasis and mild pneumonia. Mild right lung opacities without significant change. No significant pleural effusion noted. The heart is normal size.
[2024-06-20 08:29] LABS: Albumin 3.1 g/dL (3.4-5.0); Albumin/Globulin Ratio 0.7 (1.1-1.8); Anion Gap 8.6 mEq/L (5.0-15.0); Bilirubin Direct 0.2 mg/dL (0-0.2); Bilirubin Indirect, Calculated 0.5 mg/dL (0.2-0.8); Bilirubin Total 0.7 mg/dL (0.2-1.0); Globulin 4.4 g/dL (2.3-3.5); Protein, Total 7.5 g/dL (6.4-8.2); Troponin High Sensitivity 3.7 pg/mL (<58.9)
[2024-06-20 08:37] LABS: Magnesium 1.7 mg/dL (1.6-2.4); Potassium 3.6 mEq/L (3.5-5.1)
--- NOTE | 2024-06-20 08:51 | ER ---
Nurse's Notes [facility] Name: Nicolas Rojas Age: 68 yrs Sex: Male : 1955 Arrival Date: 06/20/2024 Time: 06:58 Bed 20 Private MD: Inge Baer Diagnosis: Other pneumonia, unspecified organism;Diarrhea, unspecified;Essential (primary) hypertension Presentation: 06/20 07:05 Chief complaint: Patient states: diarrhea since , started throwing up Wednesday , iw has been sleeping a lot, now the diarrhea has slowed down, still has dry heaves, has pain to left chest around to shoulder, worse when he lays down , also has a cough since Wednesday. Coronavirus screen: Client presents with at least one sign or symptom that may indicate coronavirus-19. Ebola Screen: No symptoms or risks identified at this time. Initial Sepsis Screen: Does the patient meet any 2 criteria? No. Patient's initial sepsis screen is negative. Does the patient have a suspected source of infection? No. Patient's initial sepsis screen is negative. Risk Assessment: Do you want to hurt yourself or someone else? Patient reports no desire to harm self or others. Onset of symptoms was June 15, 2024. 07:05 Method Of Arrival: Ambulatory iw 07:05 Acuity: BEBE 3 iw Triage Assessment: 07:55 Respiratory: Onset: The symptoms/episode began/occurred 06/15/24. ap3 Historical: - Allergies: 07:09 No Known Allergies; iw - Home Meds: 07:09 levothyroxine 125 mcg capsule daily [Active]; prednisone 10 mg Oral tablet daily iw [Active]; Anoro Ellipta 62.5-25 mcg/actuation inhalation Blister, With Inhalation Device [Active]; - PMHx: 07:08 CAD; COPD; Hyperlipidemia; Hypertension; Hypothyroidism; Lung Cancer; Myocardial iw infarction; Pneumonia; - PSHx: 07:08 Appendectomy; left lower lobectomy; iw - Immunization history:: Adult Immunizations not up to date. - Infectious Disease History:: Denies. - Social history:: Smoking status: Patient denies any tobacco usage or history of. Screenin:28 [facility] ED Fall Risk Assessment (Adult) History of falling in the last 3 months, ap3 including since admission No falls in past 3 months (0 pts) Confusion or Disorientation No (0 pts) Intoxicated or Sedated No (0 pts) Impaired Gait No (0 pts) Mobility Assist Device Used No (0 pt) Altered Elimination No (0 pt) Score/Fall Risk Level 0 - 2 = Low Risk Oriented to surroundings, Maintained a safe environment, Educated pt \T\ family on fall prevention, incl call for assistance when getting out of bed, Assessed \T\ reinforced patient's understanding of fall precautions, Hourly rounding (assess needs \T\ fall precautionary measures) done, Used ambulatory aids as needed (educated on \T\ assisted with). Abuse screen: Denies threats or abuse. Nutritional screening: No deficits noted. Tuberculosis screening: No symptoms or risk factors identified. Assessment: 07:25 General: Appears in no apparent distress. Behavior is calm, cooperative, appropriate ap3 for age. Pain: Complains of pain in chest Is chronic. Neuro: Level of Consciousness is awake, alert, obeys commands, Oriented to person, place, time, situation. Cardiovascular: Patient's skin is warm and dry. Cardiovascular: Rhythm is regular. Respiratory: Airway is patent Respiratory effort is even, unlabored, Respiratory pattern is regular, symmetrical. GI: Reports diarrhea. 08:24 Reassessment: Patient and/or family updated on plan of care and expected duration. Pain ap3 level reassessed. Patient is alert, oriented x 3, equal unlabored respirations, skin warm/dry/pink. 09:12 Respiratory: ap3 Vital Signs: 07:05 BP 135 / 99; Pulse 95; Resp 19; Temp 98.1; Pulse Ox 96% on R/A; Weight 90.72 kg; Height iw 6 ft. 1 in. ; Pain 10/10; 07:54 BP 136 / 105; Pulse 82; Resp 18; Pulse Ox 100% ; ap3 09:13 BP 128 / 98; Pulse 78; Resp 17; Pulse Ox 100% on R/A; ap3 07:05 Body Mass Index 26.39 (90.72 kg, 185.42 cm) iw 07:05 Pain Scale: Adult iw ED Course: 06:59 Patient arrived in ED. as 07:02 Inge Baer is Private Physician. as 07:07 Triage completed. iw 07:10 Mohinder Kimball DO is Attending Physician. ms3 07:22 Ana María Gamboa, RN is Primary Nurse. ap3 07:23 EKG done, by ED staff, reviewed by Mohinder Kimball DO. ap3 07:23 Client placed on continuous cardiac and pulse oximetry monitoring. NIBP monitoring ap3 applied. magazine feeder on. Pulse ox on. NIBP on. 07:23 Patient has correct armband on for positive identification. Placed in gown. Bed in low ap3 position. Call light in reach. Side rails up X2. Adult w/ patient. Door closed. Noise minimized. 07:29 Arm band placed on right wrist. ap3 07:51 Inserted saline lock: 22 gauge in right wrist, using aseptic technique. Blood ap3 collected. Flushed with 10 mL NS. 07:53 XRAY Chest (1 view) In Process Unspecified. EDMS 08:51 Inge Baer is Referral Physician. ms3 09:12 No provider procedures requiring assistance completed. IV discontinued, intact, ap3 bleeding controlled, No redness/swelling at site. Pressure dressing applied. 09:13 Provided Education on: discharge instructions. ap3 Administered Medications: No medications were administered Medication: 07:56 VIS not applicable for this client. ap3 Outcome: 08:51 Discharge ordered by MD. ms3 09:12 Discharged to home ambulatory, ap3 09:12 Condition: good 09:12 Discharge instructions given to patient, Instructed on discharge instructions, follow up and referral plans. medication usage, Demonstrated understanding of instructions, follow-up care, medications, Prescriptions given X 1, 09:13 Patient left the ED. ap3 Signatures: Dispatcher [employer] EDSC Maria A Silvemran as Kemi Ribera RN RN iw Ana María Gamboa, SARAH RN ap3 Mohinder Kimball DO DO ms3 Corrections: (The following items were deleted from the chart) 07:08 07:05 Chief complaint: Patient states: diarrhea since , started throwing up iw Wednesday , has been sleeping a lot, now the diarrhea has slowed down, still has dry heaves, has pain to LUQ around to shoulder, worse when he lays down iw 07:09 07:05 Chief complaint: Patient states: diarrhea since , started throwing up iw Wednesday , has been sleeping a lot, now the diarrhea has slowed down, still has dry heaves, has pain to LUQ around to shoulder, worse when he lays down , also has a cough since Wednesday 07: 07:05 BP 135 / 99; Pulse 95bpm; Resp 19bpm; Temp 98.1F; iw
--- NOTE | 2024-06-20 08:51 | EDPHYS ---
Physician Documentation [facility] Name: Nicolas Rojas Age: 68 yrs Sex: Male : 1955 Arrival Date: 06/20/2024 Time: 06:58 Bed 20 Private MD: Inge Baer ED Physician Mohinder Kimball HPI: 06/20 07:55 This 68 yrs old Male presents to ER via Ambulatory with complaints of Shortness Of ms3 Breath, Diarrhea. 07:55 68-year-old male with past medical history of coronary artery disease, COPD, ms3 hyperlipidemia, hypertension, hypothyroidism, lung cancer, [place] presents to the emergency department for diarrhea that began on . Patient noted he also had vomiting on . Patient endorses fatigue, decreased appetite, and a productive cough that started on Wednesday. He denies any alleviating or inciting factors.. Historical: - Allergies: 07:09 No Known Allergies; iw - Home Meds: 07:09 levothyroxine 125 mcg capsule daily [Active]; prednisone 10 mg Oral tablet daily iw [Active]; Anoro Ellipta 62.5-25 mcg/actuation inhalation Blister, With Inhalation Device [Active]; - PMHx: 07:08 CAD; COPD; Hyperlipidemia; Hypertension; Hypothyroidism; Lung Cancer; Myocardial iw infarction; Pneumonia; - PSHx: 07:08 Appendectomy; left lower lobectomy; iw - Immunization history:: Adult Immunizations not up to date. - Infectious Disease History:: Denies. - Social history:: Smoking status: Patient denies any tobacco usage or history of. ROS: 07:55 Constitutional: Negative for fever, and chills. Cardiovascular: Negative for chest ms3 pain, and palpitations. 07:55 MS/Extremity: Negative for injury and deformity, Skin: Negative for injury, rash, and discoloration, 07:55 Respiratory: Positive for cough, 07:55 Abdomen/GI: Positive for nausea, vomiting, diarrhea, Exam: 07:55 Constitutional: This is a well developed, well nourished patient who is awake, alert, ms3 and in no acute distress. Cardiovascular: Regular rate and rhythm with a normal S1 and S2. No gallops, murmurs, or rubs. Normal PMI, no JVD. No pulse deficits. Respiratory: Lungs have equal breath sounds bilaterally, clear to auscultation and percussion. No rales, rhonchi or wheezes noted. No increased work of breathing, no retractions or nasal flaring. Abdomen/GI: Soft, non-tender, with normal bowel sounds. No distension or tympany. No guarding or rebound. No evidence of tenderness throughout. Skin: Warm, dry with normal turgor. Normal color with no rashes, no lesions, and no evidence of cellulitis. MS/ Extremity: Pulses equal, no cyanosis. Neurovascular intact. Full, normal range of motion. 07:58 ECG was reviewed by the Attending Physician. ms3 Vital Signs: 07:05 BP 135 / 99; Pulse 95; Resp 19; Temp 98.1; Pulse Ox 96% on R/A; Weight 90.72 kg; Height iw 6 ft. 1 in. ; Pain 10/10; 07:54 BP 136 / 105; Pulse 82; Resp 18; Pulse Ox 100% ; ap3 09:13 BP 128 / 98; Pulse 78; Resp 17; Pulse Ox 100% on R/A; ap3 07:05 Body Mass Index 26.39 (90.72 kg, 185.42 cm) iw 07:05 Pain Scale: Adult iw MDM: 07:25 Medical Screening Exam initiated ms3 07:55 Differential diagnosis: Anemia Myocardial Infarction pneumonia, pulmonary edema, ms3 Pneumonia. 09:10 Data reviewed: vital signs, nurses notes, lab test result(s), EKG, radiologic studies, ms3 and as a result, I will discharge patient. Independent interpretation of the following test(s) in the Emergency Department EKG: See my EKG interpretation above. Counseling: I had a detailed discussion with the patient and/or guardian regarding the historical points, exam findings, and any diagnostic results supporting the discharge/admit diagnosis, lab results, radiology results, the need for outpatient follow up, to return to the emergency department if symptoms worsen or persist or if there are any questions or concerns that arise at home. Special discussion: I discussed with the patient/guardian in detail that at this point there is no indication for admission to the hospital. It is understood, however, that if the symptoms persist or worsen the patient needs to return immediately for re-evaluation. ED course: Discussed EKG, labs, chest x-ray with the patient. Patient to follow-up with primary care physician in 2 to 3 days. All questions were answered. Return precautions discussed include shortness of breath, fevers, worsening symptoms, or any other concerns. On reevaluation patient is alert and oriented x 4, in no apparent distress, nontoxic-appearing, speaking full sentences.. 06/20 07:26 Order name: Basic Metabolic Panel; Complete Time: 08:38 ms3 06/20 07:26 Order name: CBC with Diff; Complete Time: 08:34 ms3 06/20 07:26 Order name: LFT's; Complete Time: 08:38 ms3 06/20 07:26 Order name: Magnesium; Complete Time: 08:38 ms3 06/20 07:26 Order name: Troponin HS; Complete Time: 08:38 ms3 06/20 07:26 Order name: Lipase; Complete Time: 08:38 ms3 06/20 07:26 Order name: XRAY Chest (1 view); Complete Time: 08:34 ms3 06/20 07:26 Order name: Cardiac monitoring; Complete Time: 07:31 ms3 06/20 07:26 Order name: EKG - Nurse/Tech; Complete Time: 07:31 ms3 06/20 07:26 Order name: IV Saline Lock; Complete Time: 07:51 ms3 06/20 07:26 Order name: Labs collected and sent; Complete Time: 07:54 ms3 06/20 07:26 Order name: O2 Per Protocol; Complete Time: 07:31 ms3 06/20 07:26 Order name: O2 Sat Monitoring; Complete Time: 07:31 ms3 EC:58 Rate is 84 beats/min. Rhythm is regular. Right axis deviation noted. QRS interval is ms3 normal. Clinical impression: NSR w/ Non-specific ST/T Changes. Interpreted by me. Reviewed by me. Administered Medications: No medications were administered Disposition Summary: 06/20/24 08:51 Discharge Ordered Notes: Location: Home ms3 Condition: Stable ms3 Diagnosis - Other pneumonia, unspecified organism ms3 - Diarrhea, unspecified ms3 - Essential (primary) hypertension ms3 Followup: ms3 - With: Private Physician - When: 2 - 3 days - Reason: Followup: ms3 - With: Inge Baer - When: 2 - 3 days - Reason: Recheck today's complaints Discharge Instructions: - Discharge Summary Sheet ms3 - Food Choices to Help Relieve Diarrhea, Adult ms3 - Diarrhea, Adult ms3 - Hypertension, Adult ms3 - DASH Eating Plan ms3 Forms: - Medication Reconciliation Form ms3 - Antibiotic Education ms3 - Prescription Opioid Use ms3 - Patient Portal Instructions ms3 - Leadership Thank You Letter ms3 Prescriptions: - Doxycycline Hyclate 100 mg Oral Tablet - take 1 tablet ORAL route every 12 hours; 20 tablet; Refills: 0, Product ms3 Selection Permitted Signatures: Dispatcher [employer] Kemi Srinivasan, RN RN iw Mohinder Kimball, DO ms3 Corrections: (The following items were deleted from the chart) 07:27 07:27 BASIC METABOLIC PANEL+C.LAB.BRZ ordered. EDMS EDMS 07:27 07:27 CBC+H.LAB.BRZ ordered. EDMS EDMS 07:27 07:27 HEPATIC FUNCTION+C.LAB.BRZ ordered. EDMS EDMS 07:27 07:27 MAGNESIUM+C.LAB.BRZ ordered. EDMS EDMS 07:27 07:27 Troponin High Sensitivity+C.LAB.BRZ ordered. EDMS EDMS 07:27 07:27 LIPASE+C.LAB.BRZ ordered. EDMS EDMS 07:27 07:27 Chest Single View+RAD.RAD.BRZ ordered. EDMS EDMS
[2024-06-21 02:51] VITALS: TEMP 98.1
[2024-06-21 02:52] VITALS: O2SAT 100
[2024-06-21 02:53] VITALS: BP 128/98
--- NOTE | 2024-06-21 12:36 | EKG ---
Test Date: 2024-06-20 Test Time: 07:20:49 Game Designer: JONA MEASUREMENT RESULTS: Intervals: Rate: 84 FL: 208 QRSD: 106 QT: 400 QTc: 472 [place]: P: 97 FL: 208 QRS: 113 T: 65 INTERPRETIVE STATEMENTS: Suspect arm lead reversal, interpretation assumes no reversal Normal sinus rhythm Septal infarct, age undetermined Lateral infarct, age undetermined Abnormal ECG Compared to ECG 01/29/2024 13:50:24 No significant changes Electronically Signed On 06-21-24 12:36:04 CDT by Geraldo Leblanc
== END 2024-06-20 09:13 | disposition home or self-care (01) ==
LOC: ER 06:58
DX: J18.9 Pneumonia, unspecified organism (principal); R19.7 Diarrhea, unspecified; I10 Essential (primary) hypertension; J44.9 Chronic obstructive pulmonary disease, unspecified; I25.2 Old myocardial infarction
CPT/HCPCS: 36415; 71045; 80048; 80076; 83690; 83735; 84484; 85025; 93005